=== PATIENT | male | born 1960 | race Caucasian/White ===

== ENCOUNTER 2016-11-29 13:09 | Inpatient (IN) | payer BC ==
[~2016-11-29] VITALS: Ht 177.8 cm; Wt 92.8 kg
[2016-11-29 13:13] VITALS: BP 135/73; PULSE 74; RESP 15; TEMP 98; O2SAT 97
[2016-11-29 13:16] VITALS: O2SAT 97
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
[2016-11-29] MEDS ORDERED: HYDROmorphone HCL PF 1 MG/ML VIAL IV PUSH ONE (13:30)
[2016-11-29] MEDS ORDERED: SODIUM CHLORIDE 0.9% FLUSH 5 ML FLUSH IVF PRN ×2 (13:30→16:00)
[2016-11-29 13:46] LABS: AUTOMATED NEUTROPHIL # 5.3 TH/MM3 (1.8-7.7); BASOPHIL % 0.5 % (0.0-2.0); EOSINOPHIL # 0.1 TH/MM3 (0-0.4); EOSINOPHIL % 1.3 % (0.0-4.0); HEMATOCRIT 37.6 % (39.0-51.0); HEMO FLAGS DIFF FINAL; I-STAT POTASSIUM 3.4 MMOL/L (3.5-4.9); LYMPH % 23.6 % (9.0-44.0); LYMPHOCYTE # 1.9 TH/MM3 (1.0-4.8); MEAN CORPUSCULAR HEMOGLOBIN 27.9 PG (27.0-34.0); MEAN CORPUSCULAR HGB CONC 34.5 % (32.0-36.0); MONO % 7.3 % (0.0-8.0); NEUT % 67.3 % (16.0-70.0); PLATELET COUNT 256 TH/MM3 (150-450); RED BLOOD COUNT 4.65 MIL/MM3 (4.50-5.90); RED CELL DISTRIBUTION WIDTH 13.3 % (11.6-17.2); WHITE BLOOD COUNT 7.9 TH/MM3 (4.0-11.0)
[2016-11-29 13:56] LABS: APTT (PATIENT) 23.3 SEC (24.3-30.1); PROTHROMBIN TIME - PATIENT 11.1 SEC (9.8-11.6)
[2016-11-29 14:04] LABS: ANION GAP 8 MEQ/L (5-15); AST (GOT) 28 U/L (15-37); BICARBONATE 28.6 MEQ/L (21.0-32.0); BLOOD UREA NITROGEN 14 MG/DL (7-18); CHLORIDE 104 MEQ/L (98-107); GLOMERULAR FILTRATION RATE 80 ML/MIN (>89); POTASSIUM 3.3 MEQ/L (3.5-5.1); SODIUM (NA) 141 MEQ/L (136-145)
[2016-11-29 14:07] LABS: ALKALINE PHOSPHATASE 57 U/L (45-117); ALT (GPT) 32 U/L (12-78)
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
[2016-11-29] MEDS ORDERED: ONDANSETRON HCL 4 MG/2 ML VIAL IV PUSH ONE (14:30)
[2016-11-29] MEDS ORDERED: IOHEXOL 350 MG/ML 10 ML VIAL (for RAD DIAG) IV ONE (14:45)
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
[2016-11-29 16:00] VITALS: BP 136/67; PULSE 82; RESP 16; O2SAT 94
[2016-11-29] MEDS ORDERED: ACETAMINOPHEN 325 MG TAB PO PRN (16:00)
[2016-11-29] MEDS ORDERED: MAGNESIUM HYDROXIDE SUSP 30 ML CUP PO PRN (16:00)
[2016-11-29] MEDS ORDERED: CHLORHEXIDINE GLUCONATE 2 % 1 PACK (2 CLOTHS) TOP PRN (16:00)
[2016-11-29] MEDS ORDERED: MISCELLANEOUS NURSING INFORMATION XX SCH (16:00)
[2016-11-29] MEDS ORDERED: ENALAPRILAT 1.25 MG/ML VIAL IV PRN (16:00)
[2016-11-29] MEDS: SODIUM CHLOR 0.9% 1000 ML INJ 1,000 ML IV SCH (16:36)
[2016-11-29] MEDS: PANTOPRAZOLE SODIUM 40 MG VIAL IVP SCH (16:37)
--- NOTE | 2016-11-29 16:50 | PD.CONS ---
History of Present Illness Service Neurosurgery Consult Requested By Emergency room-Dr. Vivar Reason for Consult Spine fracture Primary Care Physician Non-Staff Diagnoses: History of Present Illness 56-year-old male who reportedly fell off of a ladder while boarding a plane earlier today. He apparently fell approximately 8 feet with no loss of consciousness, striking his face on the wing and landing on his right hip. He presented to the emergency room complaining of low back and right hip and wrist pain. No obvious loss of bowel or bladder function. He did have some nausea in the emergency room but was transient, following morphine administration. No dizziness or vertigo. No blurred vision or diplopia. Other than symptoms related to his extremity injuries, he has no pain weakness or numbness or paresthesias in the upper or lower extremities. No complaint of chest pain or shortness of breath. Review of Systems Constitutional: DENIES: Fatigue, Fever Eyes: DENIES: Blurred vision, Diplopia Ears, nose, mouth, throat: DENIES: Hearing loss, Vertigo Respiratory: DENIES: Cough, Shortness of breath Cardiovascular: DENIES: Chest pain, Palpitations Gastrointestinal: COMPLAINS OF: Nausea, DENIES: Abdominal pain, Vomiting Musculoskeletal: COMPLAINS OF: Joint pain, Muscle aches, Stiffness, Back pain, DENIES: Neck pain Neurologic: DENIES: Abnormal gait, Headache Psychiatric: DENIES: Anxiety, Confusion Past Family Social History Allergies: Coded Allergies: No Known Allergies (Unverified , 11/29/16) Past Medical History Date of cardiac, pulmonary, gastrointestinal disease, diabetes, hypertension Past Surgical History Tonsillectomy, adenoidectomy Appendectomy Reported Medications No prescription medications Family History Negative cardiac disease, cancer, diabetes Social History Does not smoke cigarettes or drink alcohol. Physical Exam Vital Signs Vital Signs Date Time Temp Pulse Resp B/P Pulse Ox O2 Delivery O2 Flow Rate FiO2 11/29/16 13:16 97 Nasal Cannula 2 11/29/16 13:16 97 Nasal Cannula 2 11/29/16 13:16 79 17 90 Room Air 11/29/16 13:13 98.0 74 15 135/73 97 Physical Exam GENERAL: This is a well-nourished, well-developed patient, in no apparent distress. SKIN: No rashes, ecchymoses or lesions. HEAD: No lacerations contusions, tenderness EYES: Sclerae are clear and nonicteric. No periorbital edema or ecchymosis ENT: No CSF otorrhea or rhinorrhea. No facial fracture or deformity. Tympanic membranes clear. Oropharynx clear. No periorbital edema or ecchymosis. Positive abrasions and edema with mild ecchymosis right face. No mandibular fracture or maxillary fracture palpable NECK: Supple, nontender, no meningeal signs. CARDIOVASCULAR: Regular rate and rhythm without murmurs, gallops, or rubs. Question of mild right carotid bruit RESPIRATORY: Clear to auscultation. Breath sounds equal bilaterally. No wheezes , rales, or rhonchi. GASTROINTESTINAL: Abdomen soft, non-tender, nondistended. No hepato-splenomegaly , or palpable masses. No guarding. Normal bowel sounds MUSCULOSKELETAL: Extremities without cyanosis, or edema. Positive tenderness over the right groin and anterior hip region. No left hip tenderness. Normal left hip range of motion. No knee or ankle or foot tenderness, edema, ecchymosis. No calf tenderness. Posterior tibial pulse 2+ bilateral NEUROLOGICAL: Awake and alert Oriented X 3 Speech is clear Conversant and appropriate Follow simple commands well Answers questions appropriately Reasonable judgment and insight Recent and remote memory are intact No evidence of anxiety or depression Pupils are equal and reactive to accommodation. Extra-ocular movements, visual ortiz to confrontation, facial sensorimotor, tongue, palate, sternocleidomastoid testing, hearing to finger rub testing, and bilateral shoulder shrug are all intact. Sensation is intact to light touch in all extremities Strength normal major flexion and extension groups all extremities except proximal right lower extremity motor not tested due to femur fracture. Toby's absent bilaterally No ankle clonus Plantar responses absent bilateral Fine motor movements intact upper extremities Laboratory Laboratory Tests Test 11/29/16 13:20 White Blood Count 7.9 Red Blood Count 4.65 Hemoglobin 13.0 Bedside Hemoglobin 12.9 Hematocrit 37.6 Bedside Hematocrit 38.0 Mean Corpuscular Volume 81.0 Mean Corpuscular Hemoglobin 27.9 Mean Corpuscular Hemoglobin 34.5 Concent Red Cell Distribution Width 13.3 Platelet Count 256 Mean Platelet Volume 7.3 Neutrophils (%) (Auto) 67.3 Lymphocytes (%) (Auto) 23.6 Monocytes (%) (Auto) 7.3 Eosinophils (%) (Auto) 1.3 Basophils (%) (Auto) 0.5 Neutrophils # (Auto) 5.3 Lymphocytes # (Auto) 1.9 Monocytes # (Auto) 0.6 Eosinophils # (Auto) 0.1 Basophils # (Auto) 0.0 CBC Comment DIFF FINAL Differential Comment Prothrombin Time 11.1 Prothromb Time International 1.0 Ratio Activated Partial 23.3 Thromboplast Time Bedside Sodium 141 Sodium Level 141 Bedside Potassium 3.4 Potassium Level 3.3 Bedside Chloride 100 Chloride Level 104 Carbon Dioxide Level 28.6 Anion Gap 8 Bedside Blood Urea Nitrogen 16 Blood Urea Nitrogen 14 Creatinine 0.97 Bedside Creatinine 0.9 Estimat Glomerular Filtration 80 Rate Bedside Glucose 99 Random Glucose 99 Calcium Level 8.5 Total Bilirubin 1.0 Aspartate Amino Transf 28 (AST/SGOT) Alanine Aminotransferase 32 (ALT/SGPT) Alkaline Phosphatase 57 Total Protein 7.0 Albumin 3.7 Blood Type A NEGATIVE Antibody Screen NEGATIVE Blood Bank Comment Result Diagram: 11/29/16 1320 11/29/16 1320 Imaging 11/29/2016 CT scan head and cervical and lumbar spine as well as bone windows from CT scan thorax all reviewed by the undersigned. The study reveals approximately 50% mid L4 vertebral body compression with L4 burst fracture. There is approximately 7 mm retropulsion of bone into the anterior canal at the L4 level with residual AP thecal sack dimension 4 mm. Severe lateral recess stenosis at the L4 level. There is a lesser severity L2 superior endplate fracture without significant kyphosis or retropulsion. Chest CT 11/29/16 1440 Signed Impressions: Service Date/Time: Tuesday, November 29, 2016 14:50 - CONCLUSION: 1. Cholelithiasis. 2. Clear lungs. Jens Whitaker MD Maxillofacial CT 11/29/161317 Signed Impressions: Service Date/Time: Tuesday, November 29, 2016 14:40 - CONCLUSION: 1. Right facial soft tissue swelling. Jens Whitaker MD Head CT 11/29/161317 Signed Impressions: Service Date/Time: Tuesday, November 29, 2016 14:40 - CONCLUSION: Negative noncontrast head CT. No acute finding is visualized. Juan Antonio Eddy MD Chest X-Ray 11/29/161317 Signed Impressions: Service Date/Time: Tuesday, November 29, 2016 13:41 - CONCLUSION: No acute cardiopulmonary abnormality is identified. Juan Antonio Eddy MD Abdomen/Pelvis CT 3/4/17 1318 Signed Impressions: Service Date/Time: Tuesday, November 29, 2016 14:50 - CONCLUSION: 1. Limited right proximal femur fracture. 2. L2 and L4 vertebral body fractures are identified with a small amount of perivertebral hemorrhage and a left psoas hematoma. Jens Whitaker MD Wrist X-Ray 11/29/16 0000 Signed Impressions: Service Date/Time: Tuesday, November 29, 2016 13:44 - CONCLUSION: No acute right wrist abnormality is identified. Please note that the scaphoid is not well-visualized on these projections. If there is clinical concern for scaphoid fracture consider dedicated scaphoid views. Juan Antonio Eddy MD Hip and Pelvis X-Ray 11/29/16 0000 Signed Impressions: Service Date/Time: Tuesday, November 29, 2016 13:38 - CONCLUSION: Displacement and mildly comminuted oblique fracture of the right proximal femur through the intertrochanteric region. Juan Antonio Eddy MD Femur X-Ray 11/29/16 0000 Signed Impressions: Service Date/Time: Tuesday, November 29, 2016 14:30 - CONCLUSION: There is an acute oblique mildly comminuted displaced fracture of the right proximal femur in the intertrochanteric region. Juan Antonio Eddy MD Assessment and Plan Assessment and Plan Impression: 1. L4 burst fracture with at least 50% loss of vertebral height and greater than 50% canal compromise. Presently no evidence of definite focal neurologic deficit 2. L2 superior compression fracture without significant retropulsion 3. Right femur fracture 4. C6 7 posterior osteophytic disc complex with moderate canal compromise. This appears chronic and asymptomatic. Plan: Findings were discussed with the patient and his family. The lumbar spine images were reviewed with him. Options of conservative treatment versus surgical intervention for the L4 fracture have been fully discussed. Due to the severity of the burst fracture with significant canal compromise and risk of further retropulsion with axial loading, it is recommended that the patient proceed with L3-5 posterior fusion with L4 laminectomy, canal decompression. The procedure, risks, possible palpitations been fully discussed. Anticipate surgical intervention on 12/01/16. Orthopedic evaluation pending regarding the right femur fracture. Maintain non-chemical DVT prophylaxis of present Angelo Stephens MD Nov 29, 2016 16:50
[2016-11-29 17:00] VITALS: BP 118/61; PULSE 78; RESP 20; O2SAT 92
[2016-11-29] MEDS ORDERED: MORPHINE SULFATE 4 MG/ML INJ IV PUSH PRN (17:00)
[2016-11-29] MEDS: MORPHINE SULFATE 4 MG/ML INJ IV PUSH PRN ×2 (18:17→23:15)
[2016-11-29 20:02] VITALS: O2SAT 95
[2016-11-29 20:21] VITALS: BP 127/68; PULSE 80; RESP 19; TEMP 97; O2SAT 95
[2016-11-29] MEDS: DOCUSATE SODIUM 100 MG CAP PO SCH (20:31)
[2016-11-29] MEDS: ONDANSETRON HCL 4 MG/2 ML VIAL IV PRN (23:23)
[2016-11-30] VITALS (9 sets, daily range): BP systolic 126–139; BP diastolic 62–79; PULSE 81–101; RESP 16–20; TEMP 96.2–100.1; O2SAT 94–98
[2016-11-30] MEDS: CHLORHEXIDINE GLUCONATE 2 % 1 PACK (2 CLOTHS) TOP SCH (04:34)
[2016-11-30] MEDS: ONDANSETRON HCL 4 MG/2 ML VIAL IV PRN ×2 (04:57→09:18)
[2016-11-30] MEDS: SODIUM CHLOR 0.9% 1000 ML INJ 1,000 ML IV SCH ×3 (04:57→21:55)
[2016-11-30] MEDS: MORPHINE SULFATE 4 MG/ML INJ IV PUSH PRN ×2 (04:58→09:14)
[2016-11-30] MEDS ORDERED: ONDANSETRON HCL 4 MG/2 ML VIAL IV PUSH ONE (08:52)
[2016-11-30] MEDS ORDERED: NEOSTIGMINE 3 MG/3 ML SYR IV ONE (08:52)
[2016-11-30] MEDS ORDERED: PROPOFOL 200 MG/20 ML AMP IV ONE (08:52)
[2016-11-30] MEDS: DOCUSATE SODIUM 100 MG CAP PO SCH (09:00)
[2016-11-30 09:03] LABS: AUTOMATED NEUTROPHIL # 5.9 TH/MM3 (1.8-7.7); BASOPHIL % 0.2 % (0.0-2.0); EOSINOPHIL % 0.2 % (0.0-4.0); HEMATOCRIT 33.8 % (39.0-51.0); HEMO FLAGS DIFF FINAL; LYMPH % 12.6 % (9.0-44.0); MEAN CELL VOLUME 81.8 FL (80.0-100.0); MEAN CORPUSCULAR HEMOGLOBIN 27.8 PG (27.0-34.0); MONO % 9.8 % (0.0-8.0); NEUT % 77.2 % (16.0-70.0); PLATELET COUNT 189 TH/MM3 (150-450); RED BLOOD COUNT 4.13 MIL/MM3 (4.50-5.90); RED CELL DISTRIBUTION WIDTH 13.5 % (11.6-17.2); WHITE BLOOD COUNT 7.6 TH/MM3 (4.0-11.0)
[2016-11-30 09:05] LABS: INTERNATIONAL NORMALIZED RATIO 1.1 RATIO; PROTHROMBIN TIME - PATIENT 11.7 SEC (9.8-11.6)
[2016-11-30 09:26] LABS: ALKALINE PHOSPHATASE 48 U/L (45-117); ALT (GPT) 29 U/L (12-78); ANION GAP 8 MEQ/L (5-15); AST (GOT) 27 U/L (15-37); BICARBONATE 28.5 MEQ/L (21.0-32.0); BLOOD UREA NITROGEN 14 MG/DL (7-18); CHLORIDE 105 MEQ/L (98-107); GLOMERULAR FILTRATION RATE 98 ML/MIN (>89); SODIUM (NA) 141 MEQ/L (136-145); TOTAL BILIRUBIN ADULT 1.1 MG/DL (0.2-1.0)
--- NOTE | 2016-11-30 09:37 | RADRPT ---
EXAM DATE/TIME: 11/30/2016 09:09 [facility] COMPARISON: CHEST SINGLE AP, November 29, 2016, 13:41. INDICATIONS : Follow up trauma post fall. MEDICAL HISTORY : None. SURGICAL HISTORY : None. ENCOUNTER: Subsequent ACUITY: 2 days PAIN SCORE: 0/10 LOCATION: Bilateral chest FINDINGS: Underinflated and rotated AP view of the chest demonstrates a normal-sized cardiac silhouette. There is atelectasis at the right lung base. No effusion, consolidation, or pneumothorax is visualized. The bones and soft tissues demonstrate no acute finding. CONCLUSION: Underinflation with atelectasis at the right lung base. Otherwise, no acute finding is identified. Juan Antonio Eddy MD on November 30, 2016 at 9:34 Board Certified Radiologist. This report was verified electronically.
--- NOTE | 2016-11-30 11:23 | HHI.PR ---
Subjective Subjective Notes PTD: 1 Patient lying in bed, family at bedside. Complains of pain 5/10. He complains that his left lower leg hurts also. Awaiting orthopedics arrival and any plan for surgery today. Objective Vitals/I&O Vital Signs Date Time Temp Pulse Resp B/P Pulse Ox O2 Delivery O2 Flow Rate FiO2 11/30/16 08:36 98 21 11/30/16 08:12 99.0 100 16 133/74 11/29/16 20:02 Nasal Cannula 2.00 Labs Laboratory Tests Test 11/29/16 11/30/16 13:20 07:55 White Blood Count 7.9 7.6 Red Blood Count 4.65 4.13 Hemoglobin 13.0 11.5 Bedside Hemoglobin 12.9 Hematocrit 37.6 33.8 Bedside Hematocrit 38.0 Mean Corpuscular Volume 81.0 81.8 Mean Corpuscular Hemoglobin 27.9 27.8 Mean Corpuscular Hemoglobin 34.5 34.0 Concent Red Cell Distribution Width 13.3 13.5 Platelet Count 256 189 Mean Platelet Volume 7.3 7.3 Neutrophils (%) (Auto) 67.3 77.2 Lymphocytes (%) (Auto) 23.6 12.6 Monocytes (%) (Auto) 7.3 9.8 Eosinophils (%) (Auto) 1.3 0.2 Basophils (%) (Auto) 0.5 0.2 Neutrophils # (Auto) 5.3 5.9 Lymphocytes # (Auto) 1.9 1.0 Monocytes # (Auto) 0.6 0.7 Eosinophils # (Auto) 0.1 0.0 Basophils # (Auto) 0.0 0.0 CBC Comment DIFF FINAL DIFF FINAL Differential Comment Prothrombin Time 11.1 11.7 Prothromb Time International 1.0 1.1 Ratio Activated Partial 23.3 Thromboplast Time Bedside Sodium 141 Sodium Level 141 141 Bedside Potassium 3.4 Potassium Level 3.3 4.0 Bedside Chloride 100 Chloride Level 104 105 Carbon Dioxide Level 28.6 28.5 Anion Gap 8 8 Bedside Blood Urea Nitrogen 16 Blood Urea Nitrogen 14 14 Creatinine 0.97 0.82 Bedside Creatinine 0.9 Estimat Glomerular Filtration 80 98 Rate Bedside Glucose 99 Random Glucose 99 118 Calcium Level 8.5 8.2 Total Bilirubin 1.0 1.1 Aspartate Amino Transf 28 27 (AST/SGOT) Alanine Aminotransferase 32 29 (ALT/SGPT) Alkaline Phosphatase 57 48 Total Protein 7.0 6.3 Albumin 3.7 3.4 Blood Type A NEGATIVE Antibody Screen NEGATIVE Blood Bank Comment Radiology Last Impressions Chest X-Ray 11/30/16 0000 Signed Impressions: Service Date/Time: Wednesday, November 30, 2016 09:09 - CONCLUSION: Underinflation with atelectasis at the right lung base. Otherwise, no acute finding is identified. Juan Antonio Eddy MD Chest CT 11/29/16 1440 Signed Impressions: Service Date/Time: Tuesday, November 29, 2016 14:50 - CONCLUSION: 1. Cholelithiasis. 2. Clear lungs. Jnes Whitaker MD Maxillofacial CT 11/29/16 1318 Signed Impressions: Service Date/Time: Tuesday, November 29, 2016 14:40 - CONCLUSION: 1. Right facial soft tissue swelling. Jens Whitaker MD Lumbar Spine CT 11/29/161317 Signed Impressions: Service Date/Time: Tuesday, November 29, 2016 14:50 - CONCLUSION: 1. L2 compression fracture with mild loss of vertebral body height involving the superior endplate. 2. Heavily comminuted fracture of the L4 vertebral body involving both the vertebral body and posterior elements. There is retropulsion and severe canal narrowing. 3. Fracture is also seen, nondisplaced of the left L4 inferior articular facet. 4. Left psoas hematoma and perivertebral hemorrhage as described above. Jens Whitaker MD Head CT 11/29/161317 Signed Impressions: Service Date/Time: Tuesday, November 29, 2016 14:40 - CONCLUSION: Negative noncontrast head CT. No acute finding is visualized. Juan Antonio Eddy MD Cervical Spine CT 11/29/161317 Signed Impressions: Service Date/Time: Tuesday, November 29, 2016 14:40 - CONCLUSION: 1. Broad- based disc protrusion at C6-7 with canal stenosis suspected. 2. No fractures are seen. Jens Whitaker MD Abdomen/Pelvis CT 11/29/168 Signed Impressions: Service Date/Time: Tuesday, November 29, 2016 14:50 - CONCLUSION: 1. Limited right proximal femur fracture. 2. L2 and L4 vertebral body fractures are identified with a small amount of perivertebral hemorrhage and a left psoas hematoma. Jens Whitaker MD Wrist X-Ray 11/29/16 0000 Signed Impressions: Service Date/Time: Tuesday, November 29, 2016 13:44 - CONCLUSION: No acute right wrist abnormality is identified. Please note that the scaphoid is not well-visualized on these projections. If there is clinical concern for scaphoid fracture consider dedicated scaphoid views. Juan Antonio Eddy MD Hip and Pelvis X-Ray 11/29/16 0000 Signed Impressions: Service Date/Time: Tuesday, November 29, 2016 13:38 - CONCLUSION: Displacement and mildly comminuted oblique fracture of the right proximal femur through the intertrochanteric region. Juan Antonio Eddy MD Femur X-Ray 11/29/16 0000 Signed Impressions: Service Date/Time: Tuesday, November 29, 2016 14:30 - CONCLUSION: There is an acute oblique mildly comminuted displaced fracture of the right proximal femur in the intertrochanteric region. Juan Antonio Eddy MD Narrative Exam GENERAL: This is a 56-year-old male lying in bed. Well-developed, well-nourished and in no acute distress. SKIN: Warm and dry. HEAD: Atraumatic. Normocephalic. EYES: PERRLA ENT: No nasal bleeding or discharge. Mucous membranes pink and moist. NECK: Trachea midline. No JVD. CARDIOVASCULAR: Regular rate and rhythm. RESPIRATORY: No accessory muscle use. Lungs are clear to auscultation. Breath sounds equal bilaterally. No distress or dyspnea. GASTROINTESTINAL: BS + x 4 quads. Abdomen soft, non-tender, nondistended. MUSCULOSKELETAL: Extremities without cyanosis, or edema. + peripheral pulses x 4 extremities. Warm with good capillary refill and sensation. MAEW. NEUROLOGICAL: Awake and alert. Normal speech and pattern. A/P Problem List: (1) Fracture, vertebral, lumbar closed (2) Fracture, intertrochanteric, right femur (3) Fall from height of greater than 3 feet Assessment and Plan KLUTI KAAH: This is a 56-year-old male who sustained a fall from a ladder while reporting an airplane. It was approximately 8 feet. No LOC. He hit his face on the wing and landed on his right hip. INJURIES: C6-C7 disc protrusion w/ canal stenosis L2 compression fx L4 burst vertebral body fx Perivertebral hemorrhage LEFT psoas hematoma ? scaphoid fx RIGHT proximal femur fx Consults: Neurosurgery. Orthopedics. Procedures: 12/01: OR PLAN: L3-5 posterior fusion with L4 laminectomy Awaiting orthopedics arrival and possible plan for surgery. Neurosurgery plans for possible surgery tomorrow. Diet: Nothing by mouth. (Awaiting orthopedics arrival, evaluation and possible plan for OR today.) If no OR plan today, he may have a regular diet. Pulmonary: Encourage good pulmonary toileting. IS at bedside and pt encouraged to use. Rationale for use explained to patient, and verbalized understanding. PAIN Management: Morphine IV. Pt c/o new LLE pain. Xrays obtained for evaluation. Activity: BR. PT and OT ordered. GI prophylaxis: Protonix IV Bowel regimen: Colace and MOM. No BM yet. DVT prophylaxis: Mechanical VTE with SCDs. Chemical management TBD. DC Planning: Case management consulted for assistance with final discharge disposition. Emotional support provided to patient and family at bedside and plan of care discussed. Discussed with RN at bedside. Patient is hemodynamically stable and being managed on the med/surg floor. Attending Statement The exam, history, and the medical decision-making described in the above note were completed with the assistance of the mid-level provider. I reviewed and agree with the findings presented. I attest that I had a [id number] encounter with the patient on the same day, and personally performed and documented my assessment and findings in the medical record. Problem Qualifiers (1) Fracture, vertebral, lumbar closed: Qualified Code: S32.009A - Closed fracture of lumbar vertebra, unspecified fracture morphology, unspecified lumbar vertebral level, initial encounter (2) Fracture, intertrochanteric, right femur: Qualified Code: S72.141A - Fracture, intertrochanteric, right femur, closed, initial encounter Syeda Verduzco Nov 30, 2016 11:23 Jose Alejandro Coker MD Dec 01, 2016 07:07
[2016-11-30] MEDS ORDERED: LACTATED RINGER'S 1000 ML INJ 2,000 ML IV ONE (12:00)
[2016-11-30] MEDS ORDERED: ACETAMINOPHEN 1000 MG/100 ML VIAL IV ONE (13:51)
[2016-11-30] MEDS ORDERED: FAMOTIDINE 20 MG/2 ML VIAL ONE (13:52)
--- NOTE | 2016-11-30 14:25 | PD.CONS ---
cc: Charly Torre Jr., MD HPI Service Orthopedic Surgeons Consult Requested By Primary Care Physician Non-Staff Admission Diagnosis closed right hip fracture, vertebral fractures, fall from height Diagnoses: Chief Complaint: right unstable intertroch fracture History of Present Illness 56-year-old male brought in by ambulance on long board with cervical immobilization after a fall from a height of 8 feet, complaining of right leg and low back pain. 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 He denies LOC. He is not complaining of right hip pain, lower back pain, and right wrist pain. He has mild pain in his right face. X-ray taken the emergency department reveal displaced right intertrochanteric unstable fracture. Denies loss of consciousness. Currently patient's pain is 7 out of 10 , exacerbated by any range of motion, relieved at rest and with IV pain medicine , pain is sharp nonradiating, not associated with any paresthesia and numbness to the right lower extremity. he denies any chest pain or shortness of breath. he is not on any anticoagulants. [facility] Past Medical History Medical History: Denies Significant Hx Diminished Hearing: No Past Surgical History Surgical History: No Previous Surgery Social History Alcohol Use: Yes (MODERATION) Tobacco Use: No Substance Use: No Allergies-Medications (Allergen,Severity, Reaction): Coded Allergies: No Known Allergies (Unverified , 11/29/16) Reported Meds & Prescriptions Reported Meds & Active Scripts Active No Active Prescriptions or Reported Medications Review of Systems Endocrine: DENIES: Heat/cold intolerance, Polydipsia, Polyuria, Polyphagia Eyes: DENIES: Blurred vision, Diplopia, Eye inflammation, Eye pain, Vision loss , Photosensitivity, Double Vision Ears, nose, mouth, throat: DENIES: Tinnitus, Hearing loss, Vertigo, Nasal discharge, Oral lesions, Throat pain, Hoarseness, Ear Pain, Running Nose, Epistaxis, Sinus Pain, Toothache, Odynophagia Respiratory: DENIES: Apneas, Cough, Snoring, Wheezing, Hemoptysis, Sputum production, Shortness of breath Cardiovascular: DENIES: Chest pain, Palpitations, Syncope, Dyspnea on Exertion , PND, Lower Extremity Edema, Orthopnea, Claudication Gastrointestinal: DENIES: Abdominal pain, Black stools, Bloody stools, Constipation, Diarrhea, Nausea, Vomiting, Difficulty Swallowing, Anorexia Integumentary: DENIES: Abnormal pigmentation, Nail changes, Pruritus, Rash Past Family Social History Allergies: Coded Allergies: No Known Allergies (Unverified , 11/29/16) Active Ordered Medications Current Medications Medications (Trade) Dose Ordered Sig/Sarina Route Start Time Stop Time Status Last Admin IV Flush 2 ml 2 ml UNSCH PRN IVF 11/29/16 13:30 (NS 1000 ml Inj) 1,000 ml @ 100 mls/hr Q10H IV 11/29/16 15:55 11/30/16 11:47 (NS Flush) 2 ml UNSCH PRN IVF 11/29/16 16:00 (Tylenol) 650 mg Q6H PRN PO 11/29/16 16:00 (Vasotec Inj) 1.25 mg Q8H PRN IV 11/29/16 16:00 (Zofran Inj) 4 mg Q6H PRN IV 11/29/16 16:00 11/30/16 09:18 (Protonix Inj) 40 mg Q24H IVP 11/29/16 16:00 11/29/16 16:37 (Colace) 100 mg BID PO 11/29/16 21:00 11/29/16 20:31 (Milk Of Magnesia Liq) 30 ml Q6H PRN PO 11/29/16 16:00 Miscellaneous Information 1 [id number] XX 11/29/16 16:00 (Chlorhexidine 2% Cloth) 3 pack Taper DAILY@04 TOP 11/30/16 04:00 11/26/17 03:59 (Chlorhexidine 2% Cloth) 3 pack UNSCH PRN TOP 11/29/16 16:00 (Morphine Inj) 2 mg Q4H PRN IV PUSH 11/29/16 17:00 (Morphine Inj) 4 mg Q4H PRN IV PUSH 11/29/16 17:00 11/30/16 09:14 Reported Meds & Active Scripts Active No Active Prescriptions or Reported Medications Physical Exam Vital Signs Vital Signs Date Time Temp Pulse Resp B/P Pulse Ox O2 Delivery O2 Flow Rate FiO2 11/30/16 08:36 98 21 11/30/16 08:12 99.0 100 16 133/74 95 11/30/16 04:19 99.2 97 19 138/62 95 11/30/16 00:25 99.2 95 20 136/67 95 11/29/16 20:21 97.0 80 19 127/68 95 11/29/16 20:02 95 Nasal Cannula 2.00 11/29/16 17:00 78 20 118/61 92 Nasal Cannula 2 11/29/16 16:00 82 16 136/67 94 Nasal Cannula Physical Exam Alert awake and oriented x 3. No acute distress. Head: NC/AT Neck: No pain with any range of motion and neck. Trachea is midline. No tenderness to palpation along posterior cervical elements. Pulmonary: Normal respiratory effort. Bilateral upper extremity: No deformities. Intact sensation distally in median, ulnar, and radial nerve. Intact motor in anterior interosseous, posterior interosseous, and ulnar nerve. 2+ radial artery pulses. Good cap refill. RIGHT lower extremity: Shortened and externally rotated. Grossly Neurovascularly intact, +EHL/FHL. + PT/DP pulses. Supple compartments. Negative Homans sign. LEFT lower extremity: No deformity, grossly Neurovascularly intact, +EHL/FHL. + PT/DP pulses. Supple compartments. Negative Homans sign. Laboratory Laboratory Tests Test 11/30/16 07:55 White Blood Count 7.6 Red Blood Count 4.13 Hemoglobin 11.5 Hematocrit 33.8 Mean Corpuscular Volume 81.8 Mean Corpuscular Hemoglobin 27.8 Mean Corpuscular Hemoglobin 34.0 Concent Red Cell Distribution Width 13.5 Platelet Count 189 Mean Platelet Volume 7.3 Neutrophils (%) (Auto) 77.2 Lymphocytes (%) (Auto) 12.6 Monocytes (%) (Auto) 9.8 Eosinophils (%) (Auto) 0.2 Basophils (%) (Auto) 0.2 Neutrophils # (Auto) 5.9 Lymphocytes # (Auto) 1.0 Monocytes # (Auto) 0.7 Eosinophils # (Auto) 0.0 Basophils # (Auto) 0.0 CBC Comment DIFF FINAL Differential Comment Prothrombin Time 11.7 Prothromb Time International 1.1 Ratio Sodium Level 141 Potassium Level 4.0 Chloride Level 105 Carbon Dioxide Level 28.5 Anion Gap 8 Blood Urea Nitrogen 14 Creatinine 0.82 Estimat Glomerular Filtration 98 Rate Random Glucose 118 Calcium Level 8.2 Total Bilirubin 1.1 Aspartate Amino Transf 27 (AST/SGOT) Alanine Aminotransferase 29 (ALT/SGPT) Alkaline Phosphatase 48 Total Protein 6.3 Albumin 3.4 Result Diagram: 11/30/16 0755 11/30/16 0755 Imaging Last 72 hours Impressions Tibia/Fibula X-Ray 11/30/16 0000 Signed Impressions: Service Date/Time: Wednesday, November 30, 2016 20:42 - CONCLUSION: Unremarkable examination of the left tibia. Jens Whitaker MD Femur X-Ray 11/30/16 0000 Signed Impressions: Service Date/Time: Wednesday, November 30, 2016 16:10 - CONCLUSION: Postoperative changes are seen. Jens Whitaker MD Chest X-Ray 11/30/16 0000 Signed Impressions: Service Date/Time: Wednesday, November 30, 2016 09:09 - CONCLUSION: Underinflation with atelectasis at the right lung base. Otherwise, no acute finding is identified. Juan Antonio Eddy MD Chest CT 11/29/16 1440 Signed Impressions: Service Date/Time: Tuesday, November 29, 2016 14:50 - CONCLUSION: 1. Cholelithiasis. 2. Clear lungs. Jens Whitaker MD Maxillofacial CT 11/29/16 1318 Signed Impressions: Service Date/Time: Tuesday, November 29, 2016 14:40 - CONCLUSION: 1. Right facial soft tissue swelling. Jens Whitaker MD Lumbar Spine CT 11/29/16 1318 Signed Impressions: Service Date/Time: Tuesday, November 29, 2016 14:50 - CONCLUSION: 1. L2 compression fracture with mild loss of vertebral body height involving the superior endplate. 2. Heavily comminuted fracture of the L4 vertebral body involving both the vertebral body and posterior elements. There is retropulsion and severe canal narrowing. 3. Fracture is also seen, nondisplaced of the left L4 inferior articular facet. 4. Left psoas hematoma and perivertebral hemorrhage as described above. Jens Whitaker MD Head CT 11/29/16 1318 Signed Impressions: Service Date/Time: Tuesday, November 29, 2016 14:40 - CONCLUSION: Negative noncontrast head CT. No acute finding is visualized. Juan Antonio Eddy MD Chest X-Ray 11/29/16 1318 Signed Impressions: Service Date/Time: Tuesday, November 29, 2016 13:41 - CONCLUSION: No acute cardiopulmonary abnormality is identified. Juan Antonio Eddy MD Cervical Spine CT 11/29/16 1318 Signed Impressions: Service Date/Time: Tuesday, November 29, 2016 14:40 - CONCLUSION: 1. Broad- based disc protrusion at C6-7 with canal stenosis suspected. 2. No fractures are seen. Jens Whitaker MD Abdomen/Pelvis CT 11/29/16 1318 Signed Impressions: Service Date/Time: Tuesday, November 29, 2016 14:50 - CONCLUSION: 1. Limited right proximal femur fracture. 2. L2 and L4 vertebral body fractures are identified with a small amount of perivertebral hemorrhage and a left psoas hematoma. Jens Whitaker MD Wrist X-Ray 11/29/16 0000 Signed Impressions: Service Date/Time: Tuesday, November 29, 2016 13:44 - CONCLUSION: No acute right wrist abnormality is identified. Please note that the scaphoid is not well-visualized on these projections. If there is clinical concern for scaphoid fracture consider dedicated scaphoid views. Juan Antonio Eddy MD Hip and Pelvis X-Ray 11/29/16 0000 Signed Impressions: Service Date/Time: Tuesday, November 29, 2016 13:38 - CONCLUSION: Displacement and mildly comminuted oblique fracture of the right proximal femur through the intertrochanteric region. Juan Antonio Eddy MD Femur X-Ray 11/29/16 0000 Signed Impressions: Service Date/Time: Tuesday, November 29, 2016 14:30 - CONCLUSION: There is an acute oblique mildly comminuted displaced fracture of the right proximal femur in the intertrochanteric region. Juan Antonio Eddy MD Assessment & Plan Assessment and Plan 56-year-old male status post fall from 8 foot off a ladder while working on an airplane, sustained injury to the right hip and low back. He was initially seen as well by neurosurgery with plan for lumbar spine fusion and instrumentation tomorrow. As for his right, hip x-ray examination reveal unstable right intertrochanteric femur fracture with subtrochanteric extension. He is neurovascular intact. I recommend intramedullary nailing. I discussed my treatment plans with the patient, as well as risks, benefits and alternatives of surgical Intervention versus nonoperative treatment. In this case, the risks of operative intervention involves bleeding, infection, risks of damage to neurovascular structures, the risk of needing further surgery, posttraumatic arthritis and the risks involved with complication from anesthesia. We will proceed with the above procedure. The patient accepts these risks; understands and agrees with my recommendations. I also discussed my proposed postoperative care and follow-up plan. All questions were answered. Plan for OR []. Nothing by mouth []. Patient consented. Thanks for the consult, thanks for allowing me to participate in this patient's medical care. Charly Torre Jr. Nov 30, 2016 14:25
[2016-11-30] MEDS ORDERED: PROMETHAZINE HCL 25 MG TAB PO PRN (14:30)
[2016-11-30] MEDS ORDERED: Post-op Orders (for Pharmacy) MISC XX ONE (14:30)
[2016-11-30] MEDS ORDERED: ZOLPIDEM TARTRATE 5 MG TAB PO PRN (14:30)
[2016-11-30] MEDS ORDERED: SODIUM CHLORIDE 0.9% FLUSH 5 ML FLUSH IVF PRN (14:30)
[2016-11-30] MEDS ORDERED: MORPHINE SULFATE 8 MG/ML INJ IV PUSH PRN (14:30)
[2016-11-30] MEDS ORDERED: GENTAMICIN SULFATE 80 MG/2 ML VIAL ONE (14:35)
[2016-11-30] MEDS ORDERED: ceFAZolin 2 GM PREMIX 50 ML ONE (14:35)
[2016-11-30] MEDS ORDERED: VANCOMYCIN HCL 1000 MG VIAL ONE (14:35)
[2016-11-30] MEDS: KETOROLAC TROMETHAMINE 30 MG/ML (IVP) VIAL IVP SCH ×2 (15:00→20:17)
--- NOTE | 2016-11-30 15:00 | OTSOAPIP ---
TIME SESSION COMPLETED: 1325 TREATMENT TIME: 0 MINS. CHART REVIEWED. RECEIVED ORDERS FOR EVALUATION AND TREAT. ATTEMPTED TO SEE AND PT OFF FLOOR FOR SURGERY. WILL FOLLOW NEXT DAY. Therapist: BERTHA SNYDER OT/L Signature on file
[2016-11-30] MEDS ORDERED: VANCOMYCIN INJ 1,000 MG in SODIUM CHLOR 0.9% 250 ML INJ 250 ML IV SCH (16:00)
[2016-11-30] MEDS: PANTOPRAZOLE SODIUM 40 MG VIAL IVP SCH (16:00)
[2016-11-30] MEDS ORDERED: MEPERIDINE HCL 25 MG/ML VIAL ONE (17:10)
[2016-11-30] MEDS ORDERED: MORPHINE SULFATE 4 MG/ML INJ ONE (17:27)
[2016-11-30] MEDS ORDERED: fentaNYL CITRATE 250 MCG/5 ML AMP ONE (17:27)
[2016-11-30] MEDS ORDERED: MIDAZOLAM HCL 2 MG/2 ML VIAL ONE (17:27)
--- NOTE | 2016-11-30 17:36 | RADRPT ---
EXAM DATE/TIME: 11/30/2016 16:10 [facility] COMPARISON: FEMUR RIGHT (AP & LAT/2VWS), November 29, 2016, 14:30. INDICATIONS : Open reduction. MEDICAL HISTORY : None. SURGICAL HISTORY : None. ENCOUNTER: Subsequent ACUITY: 3 days PAIN SCORE: Non-responsive. LOCATION: Right lateral FINDINGS: 5 spot intraoperative fluoroscopic views of the right femur demonstrate antegrade intramedullary marla and femoral neck screw fixation with proximal cerclage wire and distal interlocking screw placement. There is good alignment of the right proximal femur fracture. CONCLUSION: Postoperative changes are seen. Jens Whitaker MD on November 30, 2016 at 17:34 Board Certified Radiologist. This report was verified electronically.
[2016-11-30] MEDS ORDERED: DO NOT ADM ANY ANTICOAGULANT DRUGS XX PRN (18:00)
--- NOTE | 2016-11-30 19:22 | HHI.NSPN ---
Exam Results Vital Signs Date Time Temp Pulse Resp B/P Pulse Ox O2 Delivery O2 Flow Rate FiO2 11/30/16 18:18 Nasal Cannula 3.50 11/30/16 18:18 96.2 88 16 139/79 94 11/30/16 08:36 21 Intake and Output 11/29/16 11/29/16 11/30/16 08:00 16:00 00:00 Intake Total 0 ml Output Total 0 ml Balance 0 ml Physical Examination Patient examined following orthopedic surgery today. He is awake alert oriented conversant and appropriate. Complains of persistent mid lumbar pain. No radiating pain in the lower extremities Sensation intact to light touch lower extremities Strength is normal major flexion and extension groups left lower extremity and distal right lower extremity Tenderness left ankle Lab, Micro, Other Results Laboratory Tests Test 11/30/16 07:55 White Blood Count 7.6 TH/MM3 Red Blood Count 4.13 MIL/MM3 Hemoglobin 11.5 GM/DL Hematocrit 33.8 % Mean Corpuscular Volume 81.8 FL Mean Corpuscular Hemoglobin 27.8 PG Mean Corpuscular Hemoglobin 34.0 % Concent Red Cell Distribution Width 13.5 % Platelet Count 189 TH/MM3 Mean Platelet Volume 7.3 FL Neutrophils (%) (Auto) 77.2 % Lymphocytes (%) (Auto) 12.6 % Monocytes (%) (Auto) 9.8 % Eosinophils (%) (Auto) 0.2 % Basophils (%) (Auto) 0.2 % Neutrophils # (Auto) 5.9 TH/MM3 Lymphocytes # (Auto) 1.0 TH/MM3 Monocytes # (Auto) 0.7 TH/MM3 Eosinophils # (Auto) 0.0 TH/MM3 Basophils # (Auto) 0.0 TH/MM3 CBC Comment DIFF FINAL Differential Comment Prothrombin Time 11.7 SEC Prothromb Time International 1.1 RATIO Ratio Sodium Level 141 MEQ/L Potassium Level 4.0 MEQ/L Chloride Level 105 MEQ/L Carbon Dioxide Level 28.5 MEQ/L Anion Gap 8 MEQ/L Blood Urea Nitrogen 14 MG/DL Creatinine 0.82 MG/DL Estimat Glomerular Filtration 98 ML/MIN Rate Random Glucose 118 MG/DL Calcium Level 8.2 MG/DL Total Bilirubin 1.1 MG/DL Aspartate Amino Transf 27 U/L (AST/SGOT) Alanine Aminotransferase 29 U/L (ALT/SGPT) Alkaline Phosphatase 48 U/L Total Protein 6.3 GM/DL Albumin 3.4 GM/DL Medical Decision Making Impression and Plan Impression: 1. Approximately 50% L4 compression fracture with greater than 50% canal compromise. No definite focal lumbar radiculopathy on initial examination. 2. Mild L1 fracture Plan: Findings discussed again with the patient today. Plan L3-5 posterior fusion with L4 laminectomy, reduction burst fracture on . Left ankle x-ray pending. Nothing by mouth after midnight Angelo Stephens MD Nov 30, 2016 19:22
[2016-11-30] MEDS: oxyCODONE/ACETAMINOPHEN 5 MG/325 MG TAB PO PRN (20:16)
[2016-11-30] MEDS: SODIUM CHLORIDE 0.9% FLUSH 5 ML FLUSH IVF SCH (20:17)
--- NOTE | 2016-11-30 21:01 | RADRPT ---
EXAM DATE/TIME: 11/30/2016 20:42 [facility] COMPARISON: No previous studies available for comparison. INDICATIONS : Pain from falling off an airplane. MEDICAL HISTORY : None. SURGICAL HISTORY : None. ENCOUNTER: Initial ACUITY: 2 days PAIN SCORE: 4/10 LOCATION: Left anterior lower leg. FINDINGS: Two view examination of the left tibia demonstrates no evidence of fracture or dislocation. Bony min eralization is normal. The soft tissue structures are intact. CONCLUSION: Unremarkable examination of the left tibia. Jens Whitaker MD on November 30, 2016 at 20:59 Board Certified Radiologist. This report was verified electronically.
--- NOTE | 2016-11-30 21:01 | PD.OP ---
cc: Charly Torre Jr., MD Operative Report Date of Surgery: Nov 30, 2016 Preoperative Diagnosis: Right intertrochanteric unstable femur fracture Postoperative Diagnosis: Same Procedure: #1 open reduction internal fixation right hip #2 right femur intramedullary marla Anesthesia: Gen. Surgeon: Charly Torre Net Wpf Developer(s): Staff Resident Surgeon: None Operation and Findings: Implants used: 11mm x 380mm, 130 deg Synthes TFNA troch nail Patient was seen and evaluated preoperatively. The patient has significant hip pain from proximal femur fracture. The risk and benefits of surgery were discussed in depth with the patient to include bleeding, infection, nonunion, malunion, need for hip replacement, painful hardware, as well as medical competitions including blood clots, stroke, heart attack, and . Informed consent was obtained. Operative site was marked. Patient was brought to the operating room and placed on fracture table. IV sedation was administered by anesthesiologist. Timeout procedure was performed. Hip and leg were prepped with alcohol followed by Hibiclens and draped in the usual sterile fashion. IV antibiotics were given prior to incision. Procedure began with a lateral incision at the level of the subtrochanteric region. Dissection taken down through the IT band. The fracture was visualized , Traction was applied. The leg was manipulated to achieve reduction. Excellent reduction was achieved. Fluoroscopy was used to confirm reduction. A Dall-Miles cable was placed around the subtrochanteric region to maintain fracture reduction. A three inch incision was made proximal to the trochanter. Subcutaneous tissue was dissected bluntly. Guidepin was placed at the tip of the trochanter and advanced into the femoral canal. Fluoroscopy confirmed appropriate guidepin placement. A opening reamer was placed over the guidepin. A long ball tipped guide pin was now placed down the femoral canal into the center of the distal femur. The nail length was now measured. Fluoroscopy confirmed appropriate guidepin placement. Flexible reamers were now passed over the guidepin to ream the intramedullary canal. The Synthes TFNA nail was attached to the insertion handle. Nail was now placed over the guidepin into the femoral canal. Fluoroscopy confirmed appropriate nail placement. A second incision was made over the lateral thigh. Cannulas were placed through the insertion handle down to the femur. Guidepin was now placed through the femoral nail into the center of the femoral head. Fluoroscopy confirmed appropriate guidepin placement. Screw length was measured. Cannulated drill was placed over the guidepin. Appropriate length lag screw was now placed. Traction was released. Next, using perfect [place] technique two distal interlocking screws were placed. Screw holes were predrilled and screw lengths were measured. Final fluoroscopy revealed well aligned fracture with well-placed hardware. Incision was closed with 3-0 Vicryl and jorge a. Sterile dressings were applied. Patient was awakened and transferred to recovery room. POSTP-OP PLAN OF ACTIVITY Antibiotics: Ancef, vancomycin Antiocoagulation: Lovenox Weight bearing status: NWB Dressing: Change daily, by RN starting postop day 3 Future procedure planned: none Dispo: expected discharge 2 days. Likely inpatient rehabilitation Charly Torre Jr., MD Nov 30, 2016 21:00 Dispo: expected discharge 2-3 days. Charly Torre Jr., MD Nov 30, 2016 21:00
[2016-12-01] MEDS: oxyCODONE/ACETAMINOPHEN 5 MG/325 MG TAB PO PRN ×2 (00:01→08:46)
[2016-12-01] MEDS ORDERED: VANCOMYCIN INJ 1,000 MG in SODIUM CHLOR 0.9% 250 ML INJ 250 ML IV SCH (03:00)
[2016-12-01] MEDS: KETOROLAC TROMETHAMINE 30 MG/ML (IVP) VIAL IVP SCH ×3 (03:17→22:10)
[2016-12-01] MEDS: CHLORHEXIDINE GLUCONATE 2 % 1 PACK (2 CLOTHS) TOP SCH ×2 (04:00→23:45)
[2016-12-01 04:25] VITALS: BP 138/71; PULSE 82; RESP 16; TEMP 98.4; O2SAT 100
[2016-12-01] MEDS: ENOXAPARIN SODIUM 30 MG/0.3 ML SYRINGE SQ SCH ×2 (05:00→17:00)
[2016-12-01] MEDS: SODIUM CHLOR 0.9% 1000 ML INJ 1,000 ML IV SCH (07:55)
[2016-12-01 08:00] VITALS: BP 110/60; PULSE 96; RESP 17; TEMP 98; O2SAT 96
[2016-12-01 08:06] LABS: HEMATOCRIT 23.1 % (39.0-51.0); MEAN CELL VOLUME 81.9 FL (80.0-100.0); MEAN CORPUSCULAR HEMOGLOBIN 28.3 PG (27.0-34.0); MEAN CORPUSCULAR HGB CONC 34.5 % (32.0-36.0); PLATELET COUNT 138 TH/MM3 (150-450); RED BLOOD COUNT 2.82 MIL/MM3 (4.50-5.90); RED CELL DISTRIBUTION WIDTH 13.4 % (11.6-17.2); REVIEW FLAG FINAL; WHITE BLOOD COUNT 6.7 TH/MM3 (4.0-11.0)
[2016-12-01 08:10] LABS: APTT (PATIENT) 28.5 SEC (24.3-30.1); INTERNATIONAL NORMALIZED RATIO 1.1 RATIO; PROTHROMBIN TIME - PATIENT 12.3 SEC (9.8-11.6)
[2016-12-01 08:29] LABS: BICARBONATE 29.1 MEQ/L (21.0-32.0); POTASSIUM 3.8 MEQ/L (3.5-5.1)
[2016-12-01] MEDS: SODIUM CHLORIDE 0.9% FLUSH 5 ML FLUSH IVF SCH ×2 (08:30→21:00)
--- NOTE | 2016-12-01 10:48 | OTSOAPIP ---
PATIENT OFF THE FLOOR FOR BACK SURGERY. Therapist: Andressa Kirkpatrick OTR/L Signature on file
[2016-12-01] MEDS ORDERED: LACTATED RINGER'S 1000 ML INJ 2,000 ML IV ONE (11:08)
[2016-12-01] MEDS ORDERED: ONDANSETRON HCL 4 MG/2 ML VIAL IV PUSH ONE (11:08)
[2016-12-01] MEDS ORDERED: PHENYLEPHRINE HCL 10 MG/ML VIAL IV ONE (11:08)
[2016-12-01] MEDS ORDERED: SODIUM CHLOR 0.9% 250 ML INJ 250 ML IV ONE (11:08)
[2016-12-01] MEDS ORDERED: SODIUM CHLORID 0.9% 500 ML INJ 500 ML IV ONE (11:08)
[2016-12-01] MEDS ORDERED: PROPOFOL 200 MG/20 ML AMP IV ONE (11:08)
[2016-12-01] MEDS ORDERED: PHENYLEPH/NS 1000 MCG/10 ML SYR IV ONE (11:08)
[2016-12-01] MEDS ORDERED: FAMOTIDINE 20 MG/2 ML VIAL ONE (11:08)
[2016-12-01] MEDS ORDERED: ACETAMINOPHEN 1000 MG/100 ML VIAL IV ONE (11:28)
[2016-12-01] MEDS ORDERED: MIDAZOLAM HCL 2 MG/2 ML VIAL ONE ×2 (11:29→17:45)
[2016-12-01] MEDS ORDERED: fentaNYL CITRATE 250 MCG/5 ML AMP ONE ×3 (11:29→20:34)
[2016-12-01] MEDS ORDERED: ARTIFICIAL TEARS OPTH OINT 3.5 APPLIC/3.5 GM TUBO ONE (11:29)
[2016-12-01] MEDS ORDERED: LIDOCAINE 1%/EPINEPHrine 1:100,000 SOLN 30 ML VIAL ONE (11:44)
[2016-12-01] MEDS ORDERED: THROMBIN (TOPICAL) 5,000 UNIT VIAL ONE (11:44)
[2016-12-01] MEDS ORDERED: GENTAMICIN SULFATE 80 MG/2 ML VIAL ONE (11:45)
[2016-12-01] MEDS ORDERED: GELFOAM SIZE 100 ONE (11:45)
[2016-12-01] MEDS ORDERED: ceFAZolin INJ 1,000 MG VIAL IV ONE (13:20)
[2016-12-01] MEDS ORDERED: VANCOMYCIN HCL 1000 MG VIAL ONE (13:23)
[2016-12-01 14:44] LABS: BLOOD GAS BASE EXCESS -0.1 mmol/L (-2-2); BLOOD GAS HCO3 25 mmol/L (22-26); BLOOD GAS METHEMOGLOBIN 0.9 % (0-2); BLOOD GAS O2 HGB SATURATION 97 % (90-100); BLOOD GAS OXYGEN CONTENT 10.7 Vol % (12.0-20.0); BLOOD GAS PCO2 45 mmHg (38-42); BLOOD GAS PO2 242 mmHg (61-120); BLOOD GAS TOTAL HGB 7.4 G/DL (12.0-16.0); CRITICAL VALUE NO; FIO2 50 %; OXYGEN DEVICE OR; TEMP CORR TO 98.6
[2016-12-01 14:45] LABS: STAT YES
--- NOTE | 2016-12-01 14:50 | HHI.PR ---
Subjective Subjective Notes S/P L3-5 posterior fusion with L4 laminectomy Objective Vitals/I&O Vital Signs Date Time Temp Pulse Resp B/P Pulse Ox O2 Delivery O2 Flow Rate FiO2 12/01/16 08:25 Nasal Cannula 3.00 12/01/16 08:00 98.0 96 17 110/60 96 11/30/16 08:36 21 Labs Laboratory Tests Test 12/01/16 12/01/16 12/01/16 12/01/16 07:10 10:56 11:05 14:30 White Blood Count 6.7 Red Blood Count 2.82 Hemoglobin 8.0 Hematocrit 23.1 Mean Corpuscular Volume 81.9 Mean Corpuscular Hemoglobin 28.3 Mean Corpuscular Hemoglobin 34.5 Concent Red Cell Distribution Width 13.4 Platelet Count 138 Mean Platelet Volume 7.3 Prothrombin Time 12.3 Prothromb Time International 1.1 Ratio Activated Partial 28.5 Thromboplast Time Sodium Level 139 Potassium Level 3.8 Chloride Level 103 Carbon Dioxide Level 29.1 Anion Gap 7 Blood Urea Nitrogen 10 Creatinine 0.65 Estimat Glomerular Filtration 128 Rate Random Glucose 108 Calcium Level 7.5 Blood Type A NEGATIVE A NEGATIVE Crossmatch Leukocyte-Reduced Red Blood Cells Blood Bank Comment Blood Gas Puncture Site DRAWN IN OR Blood Gas Patient Temperature 98.6 Blood Gas HCO3 25 Blood Gas Base Excess -0.1 Blood Gas Oxygen Saturation 97 Arterial Blood pH 7.36 Arterial Blood Partial 45 Pressure CO2 Arterial Blood Partial 242 Pressure O2 Arterial Blood Oxygen Content 10.7 Arterial Blood 2.0 Carboxyhemoglobin Arterial Blood Methemoglobin 0.9 Blood Gas Hemoglobin 7.4 Oxygen Delivery Device OR Blood Gas Inspired Oxygen 50 Radiology Last Impressions Chest X-Ray 11/30/16 0000 Signed Impressions: Service Date/Time: Wednesday, November 30, 2016 09:09 - CONCLUSION: Underinflation with atelectasis at the right lung base. Otherwise, no acute finding is identified. Juan Antonio Eddy MD Chest CT 11/29/16 1440 Signed Impressions: Service Date/Time: Tuesday, November 29, 2016 14:50 - CONCLUSION: 1. Cholelithiasis. 2. Clear lungs. Jens Whitaker MD Maxillofacial CT 11/29/16 1318 Signed Impressions: Service Date/Time: Tuesday, November 29, 2016 14:40 - CONCLUSION: 1. Right facial soft tissue swelling. Jens Whitaker MD Lumbar Spine CT 11/29/168 Signed Impressions: Service Date/Time: Tuesday, November 29, 2016 14:50 - CONCLUSION: 1. L2 compression fracture with mild loss of vertebral body height involving the superior endplate. 2. Heavily comminuted fracture of the L4 vertebral body involving both the vertebral body and posterior elements. There is retropulsion and severe canal narrowing. 3. Fracture is also seen, nondisplaced of the left L4 inferior articular facet. 4. Left psoas hematoma and perivertebral hemorrhage as described above. Jens Whitaker MD Head CT 11/29/161317 Signed Impressions: Service Date/Time: Tuesday, November 29, 2016 14:40 - CONCLUSION: Negative noncontrast head CT. No acute finding is visualized. Juan Antonio Eddy MD Cervical Spine CT 11/29/161317 Signed Impressions: Service Date/Time: Tuesday, November 29, 2016 14:40 - CONCLUSION: 1. Broad- based disc protrusion at C6-7 with canal stenosis suspected. 2. No fractures are seen. Jens Whitaker MD Abdomen/Pelvis CT 11/29/161317 Signed Impressions: Service Date/Time: Tuesday, November 29, 2016 14:50 - CONCLUSION: 1. Limited right proximal femur fracture. 2. L2 and L4 vertebral body fractures are identified with a small amount of perivertebral hemorrhage and a left psoas hematoma. Jens Whitaker MD Wrist X-Ray 11/29/16 0000 Signed Impressions: Service Date/Time: Tuesday, November 29, 2016 13:44 - CONCLUSION: No acute right wrist abnormality is identified. Please note that the scaphoid is not well-visualized on these projections. If there is clinical concern for scaphoid fracture consider dedicated scaphoid views. Juan Antonio Eddy MD Hip and Pelvis X-Ray 11/29/16 0000 Signed Impressions: Service Date/Time: Tuesday, November 29, 2016 13:38 - CONCLUSION: Displacement and mildly comminuted oblique fracture of the right proximal femur through the intertrochanteric region. Juan Antonio Eddy MD Femur X-Ray 11/29/16 0000 Signed Impressions: Service Date/Time: Tuesday, November 29, 2016 14:30 - CONCLUSION: There is an acute oblique mildly comminuted displaced fracture of the right proximal femur in the intertrochanteric region. Juan Antonio Eddy MD Narrative Exam GENERAL: 56-year-old well-developed, well-nourished male lying in bed. SKIN: Warm and dry. Abrasions to right face. ENT: No nasal bleeding or discharge. Mucous membranes pink and moist. NECK: Trachea midline. No JVD. CARDIOVASCULAR: Regular rate and rhythm. RESPIRATORY: No accessory muscle use. Lungs are clear and diminished to auscultation. Breath sounds equal bilaterally. GASTROINTESTINAL: BS + x 4 quads. Abdomen soft, non-tender, nondistended. Light sarah urine draining to bedside Hayden bag. MUSCULOSKELETAL: Extremities without cyanosis, +1 edema RLE. + peripheral pulses x 4 extremities. Warm with good capillary refill and sensation. MAEW. Bulky dry dressing to right lateral thigh noted. NEUROLOGICAL: Awake and alert. Normal speech and pattern. A/P Problem List: (1) Fracture, vertebral, lumbar closed (2) Fracture, intertrochanteric, right femur (3) Fall from height of greater than 3 feet Assessment and Plan INJURIES: C6-C7 disc protrusion w/ canal stenosis L2 compression fx L4 burst vertebral body fx Perivertebral hemorrhage LEFT psoas hematoma ? scaphoid fx RIGHT proximal femur fx 3/5: ORIF RIGHT hip, RIGHT femur intramedullary marla 3/6: L3-5 posterior fusion with L4 laminectomy Diet: Clears Pulm: IS, encouraged patient use Pain: Percocet, Toradol, Morphine IV. Activity: BR. PT and OT ordered. GI: Protonix IV Bowel: Colace. MOM. No BM yet. DVT: SCD's, Lovenox S/P surgery today. Plan to discontinue Hayden in AM Case management consulted for discharge planning. Patient will need rehab placement at discharge. Problem Qualifiers (1) Fracture, vertebral, lumbar closed: Qualified Code: S32.009A - Closed fracture of lumbar vertebra, unspecified fracture morphology, unspecified lumbar vertebral level, initial encounter (2) Fracture, intertrochanteric, right femur: Qualified Code: S72.141A - Fracture, intertrochanteric, right femur, closed, initial encounter Christina Khanna Dec 01, 2016 14:50
--- NOTE | 2016-12-01 15:08 | EKG ---
Date Performed: 12/01/2016 Time Performed: 10:36:57 PTAGE: 56 years EKG: Sinus rhythm NORMAL ECG NO PREVIOUS TRACING DOCTOR: Amrit Carlson Interpretating Date/Time 12/01/2016 15:06:52
[2016-12-01] MEDS: PANTOPRAZOLE SODIUM 40 MG VIAL IVP SCH (16:00)
[2016-12-01 17:20] LABS: BLOOD GAS CARBOXYHEMOGLOBIN 2.8 % (0-4); BLOOD GAS HCO3 24 mmol/L (22-26); BLOOD GAS METHEMOGLOBIN 1.2 % (0-2); BLOOD GAS O2 HGB SATURATION 96 % (90-100); BLOOD GAS OXYGEN CONTENT 13.5 Vol % (12.0-20.0); BLOOD GAS PCO2 33 mmHg (38-42); BLOOD GAS PO2 135 mmHg (61-120); BLOOD GAS TOTAL HGB 9.9 G/DL (12.0-16.0); CRITICAL VALUE NO; FIO2 50 %; OXYGEN DEVICE OR; STAT YES; TEMP CORR TO 98.6
[2016-12-01] MEDS ORDERED: MORPHINE SULFATE 4 MG/ML INJ ONE (17:45)
[2016-12-01] MEDS ORDERED: PROPOFOL 500 MG/50 ML INJ 50 ML ONE (17:51)
[2016-12-01] MEDS ORDERED: ceFAZolin INJ 1,000 MG VIAL ONE (18:16)
--- NOTE | 2016-12-01 19:01 | PD.ORT.PN ---
Subjective Subjective Remarks No issues. Doing well. Pain controlled Objective Vitals Vital Signs Date Time Temp Pulse Resp B/P Pulse Ox O2 Delivery O2 Flow Rate FiO2 12/01/16 08:25 Nasal Cannula 3.00 12/01/16 08:00 98.0 96 17 110/60 96 12/01/16 04:25 98.4 82 16 138/71 100 11/30/16 23:45 98.7 84 16 126/74 98 11/30/16 20:51 94 Nasal Cannula 3.50 11/30/16 20:35 97.0 81 16 139/77 98 I/O 11/30/16 11/30/16 11/30/16 12/01/16 12/01/16 12/01/16 07:00 15:00 23:00 07:00 15:00 23:00 Intake Total 0 ml 1661 ml 3100 ml 240 ml Output Total 800 ml 2300 ml 900 ml Balance -800 ml 1661 ml 800 ml -660 ml Intake Oral 0 ml 0 ml 0 ml 240 ml IV Total 1661 ml 400 ml Other 2700 ml Output Urine Total 800 ml 1100 ml 900 ml Estimated Blood Loss 1200 ml # Voids 5 # Bowel Movements 0 0 0 0 Result Diagram: 12/01/16 0710 12/01/16 0710 Other Results Laboratory Tests Test 12/01/16 07:10 Prothrombin Time 12.3 SEC (9.8-11.6) Prothromb Time International 1.1 RATIO Ratio Objective Remarks Alert awake and oriented -3. No acute distress. Pulmonary: Normal respiratory effort. Right lower extremity: Neurovascularly intact, +EHL/FHL, dressing clean, dry and intact. + PT/DP pulses. Supple compartments. Negative Homans sign. Assessment & Plan Assessment and Plan POD# 1- right hip IMN Doing well Antibiotics: dc today Antiocoagulation: Lovenox Weight bearing status: NWB Dressing: Change daily, by RN starting postop day 2 Dispo: expected discharge 2 days. Likely inpatient rehabilitation Stable per ortho Follow-up: 2 weeks, Dr. Torre[facility] Charly Rojas Jr., MD Dec 01, 2016 19:01
[2016-12-01] MEDS ORDERED: SODIUM CHLORIDE 0.9% FLUSH 5 ML FLUSH IVF PRN (19:30)
[2016-12-01] MEDS: D5-1/2 NS + KCL 20 MEQ INJ 1,000 ML IV SCH (20:00)
--- NOTE | 2016-12-01 20:12 | PD.OP ---
Operative Report Date of Surgery: Dec 01, 2016 Preoperative Diagnosis: (1) Fracture, vertebral, lumbar closed L4 burst fracture with greater than 50% canal compromise Superior L1 compression fracture Postoperative Diagnosis: (1) Fracture, vertebral, lumbar closed L4 burst fracture with greater than 50% canal compromise Superior L1 compression fracture Procedure: 1. Bilateral L3-4 decompressive semi-laminectomy, reduction L4 burst fracture- microtechnique 2. Bilateral L3-5 posterior lateral fusion, lamina autograft, DBM, cortical cancellus chips 3. Bilateral L3-5 posterior lumbar instrumentation with pedicle screw fixation Anesthesia: Gen. endotracheal Surgeon: Angelo Stephens Decorating Machine Operator(s): Kayode Garcia Operation and Findings: Procedure in detail The patient was brought to the operating room and general endotracheal anesthesia induced without difficulty Lines were established by Anesthesia Sequential compression devices were in place The patient was positioned prone on the concentric Aleksandar table with the side bolsters and all extremities appropriately padded Leads for intraoperative neuro monitoring were placed prior to positioning and a baseline study obtained Appropriate time-out procedure was performed with all personnel present and in agreement The lumbar region was shaved with clippers and sterilely prepped and draped 1% Xylocaine with epinephrine was used for local infiltration over the incision site which was made approximately 6-7 cm lateral to the midline at the bilateral at the L3-5 level and carried sharply down to the fascia. The fascia was sharply incised and finger dissection was used to separate the normal intermuscular plane at the bilateral L3-5 level, allowing direct palpation of the junction of the and pedicle and transverse process on each side. The entry point for the pedicle screws were determined by anatomic and radiographic landmarks. Using AP and lateral C-arm imaging, the Jamshidi needle was guided through the bilateral L3, L4 and L5 pedicle. The intraoperative C-arm imaging was used to verify appropriate Jamshidi needle placement. The wires were then placed through the Jamshidi needle cannulas, and the cannula was withdrawn. The soft tissue dilators were then advanced along each guidewire and the cannulated tap through the dilator was used to prepare the pedicle at each guidewire site. The appropriate size pedicle screw with the breakoff extension tab was then placed sequentially at the bilateral L3, L4, and L5 levels. The pedicle screw placement was checked with intraoperative AP and lateral C- arm imaging as well as with intraoperative EMG monitoring and felt to be satisfactory. The marla on each side was then passed percutaneously and the locking screws placed and secured with the torque wrench and antitorque device. The entire construct was checked with AP and lateral C-arm and felt to be satisfactory. The extension tabs were then removed. The next incision was made at the midline L3-4 level and carried sharply down to the lumbodorsal fascia. On the right and left side Harris elevator was used for subperiosteal elevation of paraspinous musculature and fascia away from the lamina and spinous processes of L3 and L4 and superior aspect of L5 bilaterally. The deep self-retaining retractor was placed The appropriate levels were verified with intraoperative C-arm The microscope was moved into place and used for the remainder of the procedure including the closure TPS drill with a 5 mm bone bur followed by the 2 and 3 mm Kerrison rongeurs were used to remove the inferior third of the bilateral L3 and superior two thirds of the bilateral L4 lamina and a moderate amount of the medial facet sufficient to gain access to the lateral recess without significant thecal sac or nerve root retraction. Ligament of flavum was elevated away from the thecal sac and resected with the Kerrison rongeur. The Elwood 4 dissector and the thin ligament dissectors were used to free up the ventral lateral thecal sac and exiting L4 nerve root away from the surrounding structures on each side. The thin footplate impactors were then used to carefully and packed retropulsed bone away from the thecal sac to reduce the L4 compression fracture and decompress the spinal canal, thecal sac and exiting L4 nerve roots. The decompression was carefully assessed under the microscope as well as with the intraoperative C-arm. The bone fragments at the left L4 level were rather morcellated, somewhat more intact on the right side. There was a partial tear noted in the dura at the left anterolateral L4 level due to the fragments of morcellated bone impinging on the dura. These were carefully removed, and no spinal fluid leakage was encountered. The entire region was copiously irrigated with antibiotic irrigation. Bleeding was carefully controlled with bipolar forceps. The posterior lateral structures at the bilateral L3-5 levels were then carefully decorticated with the TPS drill with a 5 mm bone bur. The bone shavings from the decortication were left in place, to which was added additional cortical cancellus bone chips and demineralized bone matrix, which was firmly packed into place along the decorticated posterior lateral structures at L3-L5 levels. The 7 mm flat fluted drain was left in place at the operative site and brought out through a incision at the upper lumbar region and secured to the skin with nylon suture and attached to sterile suction. The closure at each incision site was performed with 0 Vicryl interrupted for the deep and superficial fascia, with 3-0 Vicryl for the subcutaneous closure and 4-0 Vicryl running subcuticular closure. Dressings sterile Mastisol, Steri-Strips and Primapore was placed The patient was turned into supine position and taken to recovery room in stable condition All counts were correct at the end of the case Estimated blood loss was 300 cc No specimen was sent to pathology Neuro monitoring was stable during the procedure Angelo Stephens MD Dec 01, 2016 20:12
--- NOTE | 2016-12-01 20:27 | RADRPT ---
EXAM DATE/TIME: 12/01/2016 13:23 [facility] COMPARISON: CT LUMBAR SPINE W/O CONTRAST, November 29, 2016, 14:50. INDICATIONS : Lower back pain. MEDICAL HISTORY : None. SURGICAL HISTORY : None. ENCOUNTER: Initial ACUITY: 1 day PAIN SCORE: Non-responsive. LOCATION: Bilateral lower back FINDINGS: 2 views in the operating room show a fusion procedure with posterior i instrumentation at L3/L4 and L 4/L5. Alignment is within normal limits. Comminuted L4 fracture again noted.. CONCLUSION: Comminuted L4 fracture. Interim fusion with posterior instrumentation, alignment near anatomic. No ac atka complication demonstrated. Juan Antonio Christie MD on December 01, 2016 at 20:23 Board Certified Radiologist. This report was verified electronically.
[2016-12-01] MEDS ORDERED: DO NOT ADM ANY ANTICOAGULANT DRUGS XX PRN (20:30)
[2016-12-01] MEDS ORDERED: DOCUSATE SODIUM 100 MG CAP PO SCH (21:00)
[2016-12-01 21:10] LABS: AUTOMATED NEUTROPHIL # 5.9 TH/MM3 (1.8-7.7); BASOPHIL % 0.2 % (0.0-2.0); EOSINOPHIL % 0.1 % (0.0-4.0); HEMATOCRIT 24.7 % (39.0-51.0); HEMO FLAGS DIFF FINAL; LYMPH % 7.1 % (9.0-44.0); LYMPHOCYTE # 0.5 TH/MM3 (1.0-4.8); MEAN CELL VOLUME 83.6 FL (80.0-100.0); MEAN CORPUSCULAR HEMOGLOBIN 28.9 PG (27.0-34.0); MEAN CORPUSCULAR HGB CONC 34.5 % (32.0-36.0); MONO % 5.3 % (0.0-8.0); NEUT % 87.3 % (16.0-70.0); PLATELET COUNT 119 TH/MM3 (150-450); RED BLOOD COUNT 2.96 MIL/MM3 (4.50-5.90); RED CELL DISTRIBUTION WIDTH 14.1 % (11.6-17.2); WHITE BLOOD COUNT 6.7 TH/MM3 (4.0-11.0)
[2016-12-01 22:07] LABS: BICARBONATE 28.6 MEQ/L (21.0-32.0); POTASSIUM 3.9 MEQ/L (3.5-5.1)
[2016-12-01] MEDS: ONDANSETRON HCL 4 MG/2 ML VIAL IVP PRN (22:09)
[2016-12-01] MEDS: MORPHINE SULFATE 4 MG/ML INJ IV PUSH PRN (22:10)
[2016-12-01 22:20] VITALS: BP 129/65; PULSE 111; RESP 17; TEMP 98.9; O2SAT 95
[2016-12-01 22:22] LABS: CALCIUM-PROTEIN CORRECTED 8.2 MG/DL (8.5-10.1)
[2016-12-02] MEDS: KETOROLAC TROMETHAMINE 30 MG/ML (IVP) VIAL IVP SCH ×2 (02:06→09:45)
[2016-12-02] MEDS: ONDANSETRON HCL 4 MG/2 ML VIAL IVP PRN ×2 (02:09→16:32)
[2016-12-02] MEDS: oxyCODONE/ACETAMINOPHEN 5 MG/325 MG TAB PO PRN ×4 (02:10→21:29)
[2016-12-02 04:00] VITALS: BP 108/63; PULSE 92; RESP 16; TEMP 98.3; O2SAT 96
[2016-12-02] MEDS: ENOXAPARIN SODIUM 30 MG/0.3 ML SYRINGE SQ SCH ×2 (05:11→18:05)
[2016-12-02] MEDS: D5-1/2 NS + KCL 20 MEQ INJ 1,000 ML IV SCH ×3 (05:11→20:45)
[2016-12-02 08:00] VITALS: BP 101/61; PULSE 83; RESP 18; TEMP 97.3; O2SAT 99
[2016-12-02 08:42] LABS: AUTOMATED NEUTROPHIL # 4.8 TH/MM3 (1.8-7.7); BASOPHIL % 0.2 % (0.0-2.0); EOSINOPHIL % 0.1 % (0.0-4.0); HEMO FLAGS DIFF FINAL; LYMPH % 13.4 % (9.0-44.0); LYMPHOCYTE # 0.9 TH/MM3 (1.0-4.8); MEAN CELL VOLUME 83.1 FL (80.0-100.0); MEAN CORPUSCULAR HEMOGLOBIN 28.6 PG (27.0-34.0); MEAN CORPUSCULAR HGB CONC 34.5 % (32.0-36.0); MONO % 12.5 % (0.0-8.0); NEUT % 73.8 % (16.0-70.0); PLATELET COUNT 117 TH/MM3 (150-450); RED BLOOD COUNT 2.53 MIL/MM3 (4.50-5.90); RED CELL DISTRIBUTION WIDTH 13.8 % (11.6-17.2); WHITE BLOOD COUNT 6.6 TH/MM3 (4.0-11.0)
[2016-12-02 08:43] VITALS: O2SAT 95
[2016-12-02 08:52] LABS: APTT (PATIENT) 28.9 SEC (24.3-30.1); INTERNATIONAL NORMALIZED RATIO 1.1 RATIO
[2016-12-02] MEDS: SODIUM CHLORIDE 0.9% FLUSH 5 ML FLUSH IVF SCH ×2 (09:00→21:29)
[2016-12-02 09:13] LABS: BICARBONATE 31.8 MEQ/L (21.0-32.0)
[2016-12-02 09:26] LABS: CALCIUM-PROTEIN CORRECTED 8.6 MG/DL (8.5-10.1)
[2016-12-02] MEDS: MAGNESIUM HYDROXIDE SUSP 30 ML CUP PO SCH (09:45)
[2016-12-02] MEDS: DOCUSATE SODIUM 50 MG/SENNA 8.6 MG TAB PO SCH ×2 (09:45→21:28)
[2016-12-02 12:00] VITALS: BP 104/68; PULSE 97; RESP 18; TEMP 97.1; O2SAT 96
[2016-12-02] MEDS ORDERED: LACTULOSE SYRUP 20 GM/30 ML CUP PO ONE (14:00)
--- NOTE | 2016-12-02 14:22 | HHI.PR ---
Subjective Subjective Notes Pain controlled Got OOB to chair today Objective Vitals/I&O Vital Signs Date Time Temp Pulse Resp B/P Pulse Ox O2 Delivery O2 Flow Rate FiO2 12/02/16 12:00 97.1 97 18 104/68 96 12/02/16 09:40 Nasal Cannula 3.00 11/30/16 08:36 21 Labs Laboratory Tests Test 12/01/16 12/01/16 12/01/16 12/02/16 14:30 17:05 20:36 07:35 Blood Gas Puncture Site DRAWN IN OR DRAWN IN OR Blood Gas Patient Temperature 98.6 98.6 Blood Gas HCO3 25 24 Blood Gas Base Excess -0.1 1.0 Blood Gas Oxygen Saturation 97 96 Arterial Blood pH 7.36 7.47 Arterial Blood Partial 45 33 Pressure CO2 Arterial Blood Partial 242 135 Pressure O2 Arterial Blood Oxygen Content 10.7 13.5 Arterial Blood 2.0 2.8 Carboxyhemoglobin Arterial Blood Methemoglobin 0.9 1.2 Blood Gas Hemoglobin 7.4 9.9 Oxygen Delivery Device OR OR Blood Gas Inspired Oxygen 50 50 White Blood Count 6.7 6.6 Red Blood Count 2.96 2.53 Hemoglobin 8.5 7.3 Hematocrit 24.7 21.0 Mean Corpuscular Volume 83.6 83.1 Mean Corpuscular Hemoglobin 28.9 28.6 Mean Corpuscular Hemoglobin 34.5 34.5 Concent Red Cell Distribution Width 14.1 13.8 Platelet Count 119 117 Mean Platelet Volume 7.4 7.7 Neutrophils (%) (Auto) 87.3 73.8 Lymphocytes (%) (Auto) 7.1 13.4 Monocytes (%) (Auto) 5.3 12.5 Eosinophils (%) (Auto) 0.1 0.1 Basophils (%) (Auto) 0.2 0.2 Neutrophils # (Auto) 5.9 4.8 Lymphocytes # (Auto) 0.5 0.9 Monocytes # (Auto) 0.4 0.8 Eosinophils # (Auto) 0.0 0.0 Basophils # (Auto) 0.0 0.0 CBC Comment DIFF FINAL DIFF FINAL Differential Comment Sodium Level 140 139 Potassium Level 3.9 4.0 Chloride Level 104 103 Carbon Dioxide Level 28.6 31.8 Anion Gap 7 4 Blood Urea Nitrogen 11 8 Creatinine 0.65 0.69 Estimat Glomerular Filtration 128 119 Rate Random Glucose 155 139 Calcium Level 7.1 7.3 Protein Corrected Calcium 8.2 8.6 Total Protein 5.0 4.8 Prothrombin Time 12.0 Prothromb Time International 1.1 Ratio Activated Partial 28.9 Thromboplast Time Radiology Last Impressions Chest X-Ray 11/30/16 0000 Signed Impressions: Service Date/Time: Wednesday, November 30, 2016 09:09 - CONCLUSION: Underinflation with atelectasis at the right lung base. Otherwise, no acute finding is identified. Juan Antonio Eddy MD Chest CT 11/29/16 1440 Signed Impressions: Service Date/Time: Tuesday, November 29, 2016 14:50 - CONCLUSION: 1. Cholelithiasis. 2. Clear lungs. Jens Whitaker MD Maxillofacial CT 11/29/161317 Signed Impressions: Service Date/Time: Tuesday, November 29, 2016 14:40 - CONCLUSION: 1. Right facial soft tissue swelling. Jens Whitaker MD Lumbar Spine CT 11/29/161317 Signed Impressions: Service Date/Time: Tuesday, November 29, 2016 14:50 - CONCLUSION: 1. L2 compression fracture with mild loss of vertebral body height involving the superior endplate. 2. Heavily comminuted fracture of the L4 vertebral body involving both the vertebral body and posterior elements. There is retropulsion and severe canal narrowing. 3. Fracture is also seen, nondisplaced of the left L4 inferior articular facet. 4. Left psoas hematoma and perivertebral hemorrhage as described above. Jens Whitaker MD Head CT 11/29/161317 Signed Impressions: Service Date/Time: Tuesday, November 29, 2016 14:40 - CONCLUSION: Negative noncontrast head CT. No acute finding is visualized. Juan Antonio Eddy MD Cervical Spine CT 11/29/161317 Signed Impressions: Service Date/Time: Tuesday, November 29, 2016 14:40 - CONCLUSION: 1. Broad- based disc protrusion at C6-7 with canal stenosis suspected. 2. No fractures are seen. Jens Whitaker MD Abdomen/Pelvis CT 11/29/161317 Signed Impressions: Service Date/Time: Tuesday, November 29, 2016 14:50 - CONCLUSION: 1. Limited right proximal femur fracture. 2. L2 and L4 vertebral body fractures are identified with a small amount of perivertebral hemorrhage and a left psoas hematoma. Jens Whitaker MD Wrist X-Ray 11/29/16 0000 Signed Impressions: Service Date/Time: Tuesday, November 29, 2016 13:44 - CONCLUSION: No acute right wrist abnormality is identified. Please note that the scaphoid is not well-visualized on these projections. If there is clinical concern for scaphoid fracture consider dedicated scaphoid views. Juan Antonio Eddy MD Hip and Pelvis X-Ray 11/29/16 0000 Signed Impressions: Service Date/Time: Tuesday, November 29, 2016 13:38 - CONCLUSION: Displacement and mildly comminuted oblique fracture of the right proximal femur through the intertrochanteric region. Juan Antonio Eddy MD Femur X-Ray 11/29/16 0000 Signed Impressions: Service Date/Time: Tuesday, November 29, 2016 14:30 - CONCLUSION: There is an acute oblique mildly comminuted displaced fracture of the right proximal femur in the intertrochanteric region. Juan Antonio Eddy MD Narrative Exam GENERAL: 56-year-old well-developed, well-nourished male lying in bed. SKIN: Warm and dry. Abrasions to right face. ENT: No nasal bleeding or discharge. Mucous membranes pink and moist. NECK: Trachea midline. No JVD. CARDIOVASCULAR: Regular rate and rhythm. RESPIRATORY: No accessory muscle use. Lungs are clear and diminished to auscultation. Breath sounds equal bilaterally. GASTROINTESTINAL: BS + x 4 quads. Abdomen soft, non-tender, nondistended. Light sarah urine draining to bedside [place] bag. MUSCULOSKELETAL: Extremities without cyanosis, +1 edema RLE. + peripheral pulses x 4 extremities. Warm with good capillary refill and sensation. MAEW. Bulky dry dressing to right lateral thigh noted. NEUROLOGICAL: Awake and alert. Normal speech and pattern. A/P Problem List: (1) Fracture, vertebral, lumbar closed (2) Fracture, intertrochanteric, right femur (3) Fall from height of greater than 3 feet Assessment and Plan INJURIES: C6-C7 disc protrusion w/ canal stenosis L2 compression fx L4 burst vertebral body fx Perivertebral hemorrhage LEFT psoas hematoma ? scaphoid fx RIGHT proximal femur fx 11/30: ORIF RIGHT hip, RIGHT femur intramedullary marla 12/01: L3-5 posterior fusion with L4 laminectomy Diet: Advanced to Regular Pulm: IS, encouraged use Pain: Morphine IV, Toradol, Percocet 1-2 tab. Pain controlled. Activity: BR. PT and OT evaluating. (NWB RLE) OOB to chair today. GI: Protonix IV Bowel: Colace. MOM. No BM yet. Lactulose x1. DVT:SCD's, Lovenox Discontinue moreland today Case management consulted for discharge planning. Patient will need rehab placement at discharge. Plan of care discussed with patient and family at bedside. The exam, history, and the medical decision-making described in the above note were completed with the assistance of the mid-level provider. I reviewed and agree with the findings presented. I attest that I had a [id number] encounter with the patient on the same day, and personally performed and documented my assessment and findings in the medical record. Problem Qualifiers (1) Fracture, vertebral, lumbar closed: Qualified Code: S32.009A - Closed fracture of lumbar vertebra, unspecified fracture morphology, unspecified lumbar vertebral level, initial encounter (2) Fracture, intertrochanteric, right femur: Qualified Code: S72.141A - Fracture, intertrochanteric, right femur, closed, initial encounter Christina Khanna Dec 02, 2016 14:22 Mandeep Cohn MD Dec 02, 2016 20:44
[2016-12-02] MEDS: PANTOPRAZOLE SODIUM 40 MG VIAL IVP SCH (14:24)
[2016-12-02 20:00] VITALS: BP 136/70; PULSE 102; RESP 16; TEMP 97.8; O2SAT 94
[2016-12-02 20:19] VITALS: O2SAT 93
--- NOTE | 2016-12-02 20:33 | HHI.NSPN ---
History Chief Complaint: moderate back pain. No lower extremity pain weakness or numbness Interval History 12/01/16: L3-5 posterior fusion with pedicle screw fixation, L3-4 decompressive laminectomy, reduction burst fracture 12/02/16: Postop day #1. Moderate low back pain. No lower extremity sensory motor deficit. Exam Results Vital Signs Date Time Temp Pulse Resp B/P Pulse Ox O2 Delivery O2 Flow Rate FiO2 12/02/16 20:19 93 Nasal Cannula 3.00 12/02/16 12:00 97.1 97 18 104/68 11/30/16 08:36 21 Intake and Output 12/01/16 12/01/16 12/02/16 08:00 16:00 00:00 Intake Total 240 ml 4748 ml Output Total 900 ml 1875 ml Balance -660 ml 2873 ml Physical Examination Respirations clear and regular Abdomen soft and nontender Dressing dry and intact. Moderate lumbar drain output He is awake alert oriented conversant and appropriate. Complains of persistent mid lumbar pain. No radiating pain in the lower extremities Sensation intact to light touch lower extremities Strength is normal major flexion and extension groups left lower extremity and distal right lower extremity Tenderness left ankle Lab, Micro, Other Results Laboratory Tests Test 12/01/16 12/02/16 20:36 07:35 White Blood Count 6.7 TH/MM3 6.6 TH/MM3 Red Blood Count 2.96 MIL/MM3 2.53 MIL/MM3 Hemoglobin 8.5 GM/DL 7.3 GM/DL Hematocrit 24.7 % 21.0 % Mean Corpuscular Volume 83.6 FL 83.1 FL Mean Corpuscular Hemoglobin 28.9 PG 28.6 PG Mean Corpuscular Hemoglobin 34.5 % 34.5 % Concent Red Cell Distribution Width 14.1 % 13.8 % Platelet Count 119 TH/MM3 117 TH/MM3 Mean Platelet Volume 7.4 FL 7.7 FL Neutrophils (%) (Auto) 87.3 % 73.8 % Lymphocytes (%) (Auto) 7.1 % 13.4 % Monocytes (%) (Auto) 5.3 % 12.5 % Eosinophils (%) (Auto) 0.1 % 0.1 % Basophils (%) (Auto) 0.2 % 0.2 % Neutrophils # (Auto) 5.9 TH/MM3 4.8 TH/MM3 Lymphocytes # (Auto) 0.5 TH/MM3 0.9 TH/MM3 Monocytes # (Auto) 0.4 TH/MM3 0.8 TH/MM3 Eosinophils # (Auto) 0.0 TH/MM3 0.0 TH/MM3 Basophils # (Auto) 0.0 TH/MM3 0.0 TH/MM3 CBC Comment DIFF FINAL DIFF FINAL Differential Comment Sodium Level 140 MEQ/L 139 MEQ/L Potassium Level 3.9 MEQ/L 4.0 MEQ/L Chloride Level 104 MEQ/L 103 MEQ/L Carbon Dioxide Level 28.6 MEQ/L 31.8 MEQ/L Anion Gap 7 MEQ/L 4 MEQ/L Blood Urea Nitrogen 11 MG/DL 8 MG/DL Creatinine 0.65 MG/DL 0.69 MG/DL Estimat Glomerular Filtration 128 ML/MIN 119 ML/MIN Rate Random Glucose 155 MG/DL 139 MG/DL Calcium Level 7.1 MG/DL 7.3 MG/DL Protein Corrected Calcium 8.2 MG/DL 8.6 MG/DL Total Protein 5.0 GM/DL 4.8 GM/DL Prothrombin Time 12.0 SEC Prothromb Time International 1.1 RATIO Ratio Activated Partial 28.9 SEC Thromboplast Time Medical Decision Making Impression and Plan Impression: 1. Stable neurologic function following L3-5 posterior fusion, L3-4 laminectomy reduction of L4 burst fracture 12/01/16. 2. Mild L1 fracture Plan: Findings discussed again with the patient today. May mobilize out of bed with TLSO brace within limits of orthopedic restrictions following surgery for right femur fracture. Advance diet as tolerated Discontinued lumbar drain Angelo Stephens MD Dec 02, 2016 20:33
[2016-12-02] MEDS: CHLORHEXIDINE GLUCONATE 2 % 1 PACK (2 CLOTHS) TOP SCH (20:45)
[2016-12-03] VITALS: BP 114/69; PULSE 99; RESP 16; TEMP 98.2; O2SAT 96
[2016-12-03] MEDS: ENOXAPARIN SODIUM 30 MG/0.3 ML SYRINGE SQ SCH (04:56)
[2016-12-03] MEDS: oxyCODONE/ACETAMINOPHEN 5 MG/325 MG TAB PO PRN ×2 (04:56→12:00)
[2016-12-03 07:00] LABS: AUTOMATED NEUTROPHIL # 6.3 TH/MM3 (1.8-7.7); BASOPHIL % 0.3 % (0.0-2.0); EOSINOPHIL # 0.2 TH/MM3 (0-0.4); EOSINOPHIL % 2.4 % (0.0-4.0); HEMO FLAGS DIFF FINAL; LYMPH % 16.3 % (9.0-44.0); LYMPHOCYTE # 1.5 TH/MM3 (1.0-4.8); MEAN CELL VOLUME 83.7 FL (80.0-100.0); MEAN CORPUSCULAR HEMOGLOBIN 29.3 PG (27.0-34.0); MONO % 10.4 % (0.0-8.0); NEUT % 70.6 % (16.0-70.0); PLATELET COUNT 170 TH/MM3 (150-450); RED BLOOD COUNT 2.75 MIL/MM3 (4.50-5.90); RED CELL DISTRIBUTION WIDTH 14.1 % (11.6-17.2)
[2016-12-03 07:09] LABS: BICARBONATE 29.9 MEQ/L (21.0-32.0); POTASSIUM 3.3 MEQ/L (3.5-5.1)
[2016-12-03] MEDS ORDERED: MISC-163 (07:35)
[2016-12-03] MEDS ORDERED: WHEEMIS3 (07:36)
[2016-12-03] MEDS ORDERED: WALKER WHEELS/F1 MIS (07:36)
[2016-12-03] MEDS ORDERED: MAGNESIUM CITRATE SOLN 300 ML BTL PO ONE (07:45)
[2016-12-03] MEDS ORDERED: POTASSIUM CHLORIDE 25 MEQ EFFERVESCENT TAB PO ONE (07:45)
[2016-12-03 08:00] VITALS: BP 138/66; PULSE 101; RESP 18; TEMP 97.6; O2SAT 95
[2016-12-03] MEDS: SODIUM CHLORIDE 0.9% FLUSH 5 ML FLUSH IVF SCH (08:17)
[2016-12-03] MEDS: DOCUSATE SODIUM 50 MG/SENNA 8.6 MG TAB PO SCH (08:18)
[2016-12-03] MEDS: MAGNESIUM HYDROXIDE SUSP 30 ML CUP PO SCH (08:18)
[2016-12-03 08:50] VITALS: O2SAT 96
--- NOTE | 2016-12-03 10:13 | PD.ORT.PN ---
Subjective Subjective Remarks No issues. Doing well. Pain controlled Objective Vitals Vital Signs Date Time Temp Pulse Resp B/P Pulse Ox O2 Delivery O2 Flow Rate FiO2 12/03/16 08:50 96 Nasal Cannula 3.00 12/03/16 08:00 97.6 101 18 138/66 95 12/03/16 00:00 98.2 99 16 114/69 96 12/02/16 21:27 94 Nasal Cannula 2.00 12/02/16 20:19 93 Nasal Cannula 3.00 12/02/16 20:00 97.8 102 16 136/70 94 12/02/16 12:00 97.1 97 18 104/68 96 I/O 12/02/16 12/02/16 12/02/16 12/03/16 12/03/16 12/03/16 07:00 15:00 23:00 07:00 15:00 23:00 Intake Total 799 ml 1220 ml 240 ml 360 ml Output Total 560 ml 1500 ml 445 ml 1105 ml Balance 239 ml -280 ml -205 ml -745 ml Intake Oral 240 ml 1220 ml 240 ml 360 ml IV Total 559 ml Output Urine Total 550 ml 1500 ml 425 ml 1100 ml Drainage Total 10 ml 20 ml 5 ml # Voids 0 # Bowel Movements 0 0 0 3 1 Result Diagram: 12/03/16 0608 12/03/16 0608 Objective Remarks Alert awake and oriented -3. No acute distress. Pulmonary: Normal respiratory effort. Right lower extremity: Neurovascularly intact, +EHL/FHL, dressing clean, dry and intact. + PT/DP pulses. Supple compartments. Negative Homans sign. Assessment & Plan Assessment and Plan POD# 3- right hip IMN Doing well Antiocoagulation: Lovenox Weight bearing status: NWB Dressing: Change daily, by R Dispo: Likely inpatient rehabilitation Stable per ortho SIGN OFF Follow-up: 2 weeks, Dr. Torre[facility] Charly Rojas Jr., MD Dec 03, 2016 10:13
[2016-12-03] MEDS ORDERED: ACET325T PO (10:52)
[2016-12-03] MEDS ORDERED: AMBI5TAB PO (10:52)
[2016-12-03] MEDS ORDERED: PANT40P PO (10:52)
[2016-12-03] MEDS ORDERED: SENN1TAB PO (10:52)
[2016-12-03] MEDS ORDERED: MILKSUS PO (10:52)
[2016-12-03] MEDS ORDERED: OXYC1TAB63 PO (10:52)
[2016-12-03] MEDS ORDERED: ENOX30P SQ (10:52)
[2016-12-03 12:00] VITALS: BP 147/75; PULSE 119; RESP 18; TEMP 97.8; O2SAT 94
[2016-12-03] MEDS: D5-1/2 NS + KCL 20 MEQ INJ 1,000 ML IV SCH (12:00)
--- NOTE | 2016-12-03 12:05 | HHI.DS ---
Discharge Summary Admission Date Nov 29, 2016 at 15:42 Discharge Date: Dec 03, 2016 Admitting Diagnosis closed right hip fracture, vertebral fractures, fall from height (1) Fracture, vertebral, lumbar closed Diagnosis: Principal (2) Fracture, intertrochanteric, right femur Diagnosis: Principal (3) Fall from height of greater than 3 feet Diagnosis: Principal Brief History Fall. CBC/BMP: 12/03/16 0608 12/03/16 0608 Significant Findings Laboratory Tests Test 12/01/16 12/01/16 12/01/16 12/01/16 07:10 14:30 17:05 20:36 Red Blood Count 2.82 MIL/MM3 2.96 MIL/MM3 (4.50-5.90) (4.50-5.90) Hemoglobin 8.0 GM/DL 8.5 GM/DL (13.0-17.0) (13.0-17.0) Hematocrit 23.1 % 24.7 % (39.0-51.0) (39.0-51.0) Platelet Count 138 TH/MM3 119 TH/MM3 (150-450) (150-450) Prothrombin Time 12.3 SEC (9.8-11.6) Random Glucose 108 MG/DL 155 MG/DL (74-106) (74-106) Calcium Level 7.5 MG/DL 7.1 MG/DL (8.5-10.1) (8.5-10.1) Arterial Blood pH 7.36 7.47 (7.380-7.420) (7.380-7.420) Arterial Blood Partial 45 mmHg (38-42) 33 mmHg (38-42) Pressure CO2 Arterial Blood Partial 242 mmHg 135 mmHg Pressure O2 (61-120) (61-120) Arterial Blood Oxygen Content 10.7 Vol % (12.0-20.0) Blood Gas Hemoglobin 7.4 G/DL 9.9 G/DL (12.0-16.0) (12.0-16.0) Neutrophils (%) (Auto) 87.3 % (16.0-70.0) Lymphocytes (%) (Auto) 7.1 % (9.0-44.0) Lymphocytes # (Auto) 0.5 TH/MM3 (1.0-4.8) Protein Corrected Calcium 8.2 MG/DL (8.5-10.1) Total Protein 5.0 GM/DL (6.4-8.2) Test 12/02/16 12/03/16 07:35 06:08 Red Blood Count 2.53 MIL/MM3 2.75 MIL/MM3 (4.50-5.90) (4.50-5.90) Hemoglobin 7.3 GM/DL 8.0 GM/DL (13.0-17.0) (13.0-17.0) Hematocrit 21.0 % 23.0 % (39.0-51.0) (39.0-51.0) Platelet Count 117 TH/MM3 (150-450) Neutrophils (%) (Auto) 73.8 % 70.6 % (16.0-70.0) (16.0-70.0) Monocytes (%) (Auto) 12.5 % 10.4 % (0.0-8.0) (0.0-8.0) Lymphocytes # (Auto) 0.9 TH/MM3 (1.0-4.8) Prothrombin Time 12.0 SEC (9.8-11.6) Anion Gap 4 MEQ/L (5-15) Random Glucose 139 MG/DL (74-106) Calcium Level 7.3 MG/DL 7.5 MG/DL (8.5-10.1) (8.5-10.1) Total Protein 4.8 GM/DL (6.4-8.2) Potassium Level 3.3 MEQ/L (3.5-5.1) Creatinine 0.52 MG/DL (0.60-1.30) Imaging Last Impressions Lumbar Spine X-Ray 12/01/16 0000 Signed Impressions: Service Date/Time: Thursday, December 01, 2016 13:23 - CONCLUSION: Comminuted L4 fracture. Interim fusion with posterior instrumentation, alignment near anatomic. No acute complication demonstrated. Juan Antonio Crhistie MD Tibia/Fibula X-Ray 11/30/16 0000 Signed Impressions: Service Date/Time: Wednesday, November 30, 2016 20:42 - CONCLUSION: Unremarkable examination of the left tibia. Jens Whitaker MD Femur X-Ray 11/30/16 0000 Signed Impressions: Service Date/Time: Wednesday, November 30, 2016 16:10 - CONCLUSION: Postoperative changes are seen. Jens Whitaker MD Chest X-Ray 11/30/16 0000 Signed Impressions: Service Date/Time: Wednesday, November 30, 2016 09:09 - CONCLUSION: Underinflation with atelectasis at the right lung base. Otherwise, no acute finding is identified. Juan Antonio Eddy MD Chest CT 11/29/16 1440 Signed Impressions: Service Date/Time: Tuesday, November 29, 2016 14:50 - CONCLUSION: 1. Cholelithiasis. 2. Clear lungs. Jens Whitaker MD Maxillofacial CT 11/29/168 Signed Impressions: Service Date/Time: Tuesday, November 29, 2016 14:40 - CONCLUSION: 1. Right facial soft tissue swelling. Jens Whitaker MD Lumbar Spine CT 11/29/161317 Signed Impressions: Service Date/Time: Tuesday, November 29, 2016 14:50 - CONCLUSION: 1. L2 compression fracture with mild loss of vertebral body height involving the superior endplate. 2. Heavily comminuted fracture of the L4 vertebral body involving both the vertebral body and posterior elements. There is retropulsion and severe canal narrowing. 3. Fracture is also seen, nondisplaced of the left L4 inferior articular facet. 4. Left psoas hematoma and perivertebral hemorrhage as described above. Jens Whitaker MD Head CT 11/29/168 Signed Impressions: Service Date/Time: Tuesday, November 29, 2016 14:40 - CONCLUSION: Negative noncontrast head CT. No acute finding is visualized. Juan Antonio Eddy MD Cervical Spine CT 11/29/168 Signed Impressions: Service Date/Time: Tuesday, November 29, 2016 14:40 - CONCLUSION: 1. Broad- based disc protrusion at C6-7 with canal stenosis suspected. 2. No fractures are seen. Jens Whitaker MD Abdomen/Pelvis CT 11/29/16 1318 Signed Impressions: Service Date/Time: Tuesday, November 29, 2016 14:50 - CONCLUSION: 1. Limited right proximal femur fracture. 2. L2 and L4 vertebral body fractures are identified with a small amount of perivertebral hemorrhage and a left psoas hematoma. Jens Whitaker MD Wrist X-Ray 11/29/16 0000 Signed Impressions: Service Date/Time: Tuesday, November 29, 2016 13:44 - CONCLUSION: No acute right wrist abnormality is identified. Please note that the scaphoid is not well-visualized on these projections. If there is clinical concern for scaphoid fracture consider dedicated scaphoid views. Juan Antonio Eddy MD Hip and Pelvis X-Ray 11/29/16 0000 Signed Impressions: Service Date/Time: Tuesday, November 29, 2016 13:38 - CONCLUSION: Displacement and mildly comminuted oblique fracture of the right proximal femur through the intertrochanteric region. Juan Antonio Eddy MD PE at Discharge GENERAL: 56-year-old well-developed, well-nourished male lying in bed. SKIN: Warm and dry. Superficial abrasions to right face. ENT: No nasal bleeding or discharge. Mucous membranes pink and moist. NECK: Trachea midline. No JVD. CARDIOVASCULAR: Regular rate and rhythm. RESPIRATORY: No accessory muscle use. Lungs are clear and diminished to auscultation. Breath sounds equal bilaterally. GASTROINTESTINAL: BS + x 4 quads. Abdomen soft, non-tender, nondistended. MUSCULOSKELETAL: Extremities without cyanosis, +1 edema RLE. + peripheral pulses x 4 extremities. Warm with good capillary refill and sensation. MAEW. Bulky dry dressing to right lateral thigh noted. NEUROLOGICAL: Awake and alert. Normal speech and pattern. Hospital Course TAKOTNA: This is a 56-year-old male who sustained a fall from a ladder while boarding a plane - approx. 8 feet. No LOC. He hit his face on the wing and landed on his RIGHT hip. INJURIES: C6-C7 disc protrusion w/ canal stenosis L2 compression fx L4 burst vertebral body fx Perivertebral hemorrhage LEFT psoas hematoma ? scaphoid fx RIGHT proximal femur fx Procedures: 11/30: ORIF RIGHT hip, RIGHT femur intramedullary marla 12/01: L3-5 posterior fusion with L4 laminectomy Consults: Orthopedics. Neurosurgery. _ The patient is now tolerating a po diet. Eating and drinking well. Pain is being managed well with PO pain medications, and patient is being a provided with a script for pain meds upon discharge. (NO driving while taking narcotic pain medication enforced to patient.) He will continue all hospital medications while in [facility]. Patient has not had a bowel movement however he has been intensified with magnesium citrate. We have recommended to patient to continue with stool softeners while taking narcotic pain medications. Pt has been participating in PT and OT while admitted at [facility] and has been ambulating with their assistance and independently . PT and OT will continue while he is at [facility]. All follow up appointments have been provided and discussed with the patient. It is recommended that the patient keeps all his follow up appointments for continued recovery. Therefore, the patient is stable to be safely discharged to [facility] from a trauma surgery standpoint. Thank you for allowing us to participate in his care. We wish Zeke the best in his recovery. Pt Condition on Discharge: Stable Discharge Disposition: Rehab Inpatient Discharge Instructions DIET: Follow Instructions for: As Tolerated, No Restrictions Activities you can perform: Non Weight Bearing Activities to Avoid: Driving for 24 hrs, Concussion Sports, Contact Sports, Lifting/Bending, Strenuous Activity Syeda Verduzco Dec 03, 2016 12:05
[2016-12-03 13:00] VITALS: RESP 18
[2016-12-18] MEDS ORDERED: WHEEMIS3 (13:18)
[2016-12-18] MEDS ORDERED: GETGO ROLLING W1 MI1 (13:18)
[2016-12-18] MEDS ORDERED: COMMODE 3-IN-11 MIS (13:18)
[2016-12-18] MEDS ORDERED: PLATMIS3 (13:18)
[2016-12-18] MEDS ORDERED: TUB TRANSFER BO1 MIS (13:18)
[2016-12-22] MEDS ORDERED: AMBI5TAB PO (09:01)
[2016-12-22] MEDS ORDERED: OXYC1TAB63 PO (09:01)
[2016-12-22] MEDS ORDERED: SENN1TAB PO (09:46)
[2016-12-22] MEDS ORDERED: MILKSUS PO (09:46)
[2016-12-22] MEDS ORDERED: ACET325T PO (09:46)
[2016-12-22] MEDS ORDERED: PANT40TA3 PO (09:46)
[2016-12-22] MEDS ORDERED: FERR325T PO (09:46)
[2016-12-22] MEDS ORDERED: POTA-243 PO (09:46)
[2016-12-22] MEDS ORDERED: ENOX30P SQ ×2 (09:46)
[2017-01-01] MEDS ORDERED: TRAM50TA (13:11)
[2017-01-01] MEDS ORDERED: MELO7.5T4 (13:11)
[2017-01-02] MEDS ORDERED: AMBI5TAB PO (16:02)
[2017-01-02] MEDS ORDERED: PERC5TAB12 PO (16:02)
[2017-03-11] MEDS ORDERED: MAPA500C PO (17:00)
== END 2016-12-03 13:30 | DRG 459 ==
LOC: NEPC 13:09 → NEDA 15:42 → N06A 19:00
PROVIDERS: ADMIT Surgery; ATTEND Surgery
PROC: 0QS606Z Reposition Right Upper Femur with Intramedullary Internal Fixation Device, Open Approach (ICD-10-PCS; 2016-11-30)
PROC: 0QS00ZZ Reposition Lumbar Vertebra, Open Approach (ICD-10-PCS; 2016-12-01)
PROC: 30233N1 Transfusion of Nonautologous Red Blood Cells into Peripheral Vein, Percutaneous Approach (ICD-10-PCS; 2016-12-01)
PROC: 0SG1071 Fusion of 2 or more Lumbar Vertebral Joints with Autologous Tissue Substitute, Posterior Approach, Posterior Column, Open Approach (ICD-10-PCS; principal; 2016-12-01 11:53)
DX: S32.041A Stable burst fracture of fourth lumbar vertebra, initial encounter for closed fracture (principal); S72.141A Displaced intertrochanteric fracture of right femur, initial encounter for closed fracture; S32.019A Unspecified fracture of first lumbar vertebra, initial encounter for closed fracture; M50.223 Other cervical disc displacement at C6-C7 level; M48.02 Spinal stenosis, cervical region; S32.029A Unspecified fracture of second lumbar vertebra, initial encounter for closed fracture; W11.XXXA Fall on and from ladder, initial encounter; Y92.520 Airport as the place of occurrence of the external cause
CPT/HCPCS: 36430; 70450; 70486; 71010; 71260; 72100; 72125; 72131; 73110; 73502; 73552; 73590; 74177; 76000; 80048; 80053; 82435; 82565; 82805; 82947; 84132; 84155; 84295; 84520; 85025; 85027; 85610; 85730; 86850; 86900; 86901; 86920; 93005; 94150; 96374; 96375; C1713; C9113; J0131; J0690; J1170; J1580; J1650; J1885; J2175; J2250; J2270; J2370; J2405; J2710; J3010; J3370; J3480; J7030; J7040; J7050; J7120; L0200; L0484; P9016; Q0169; Q9967